=== PATIENT | female | born 1940 | race Caucasian/White ===

== ENCOUNTER 2024-01-14 19:32 | Inpatient (IN) | payer MEDICARE, OTHER, SELFPAY ==
[2024-01-14] VITALS (7 sets, daily range): BP systolic 105–153; BP diastolic 56–73; PULSE 72–73
[2024-01-14 16:12] LABS: % Basophils 0.6 % (0-2); % Eosinophils 1.9 % (0-6); % Immature Granulocytes 0.4 % (0-0.5); % Lymphocytes 9.9 % (20.5-51.1); % Monocytes 7.3 % (1.7-9.3); % Neutrophils 79.9 % (42.2-75.2); Absolute Basophils 0.1 10^3/uL (0-0.2); Absolute Eosinophils 0.2 10^3/uL (0-0.7); Absolute Lymphocytes 0.8 10^3/uL (1.2-3.4); Absolute Monocytes 0.6 10^3/uL (0.1-0.6); Absolute Neutrophils 6.3 10^3/uL (1.4-6.5); Hematocrit 37.6 % (37.0-47.0); Hemoglobin 12.2 g/dL (12.0-16.0); Mean Corp Hgb Conc. 32.4 g/dL (33.0-37.0); Mean Corpuscular Hgb 29.9 pg (27.0-31.0); Mean Corpuscular Volume 92.2 fL (81.0-99.0); Mean Platelet Volume 9.5 fL (7.4-10.4); Nucleated Red Blood Cells % 0 %; Platelet Count 222 10^3/uL (130-400); Red Blood Cell Count 4.08 10^6/uL (4.20-5.40); Red Cell Dist. Width 14.1 % (11.5-14.5); White Blood Cell Count 7.9 10^3/uL (4.8-10.8)
[2024-01-14 16:33] LABS: ALT (SGPT) 12 U/L (0-35); AST (SGOT) 23 U/L (14-36); Albumin 3.8 g/dl (3.5-5.0); Alkaline Phosphatase 110 U/L (38-126); Blood Urea Nitrogen 19 mg/dl (7-17); Calcium 9.2 mg/dl (8.4-10.2); Carbon Dioxide 33 mmol/L (22-30); Chloride 100 mmol/L (98-107); Glucose 135 mg/dl (70-99); Potassium 4.1 mmol/L (3.5-5.1); Sodium 138 mmol/L (135-145); Total Bilirubin 1.2 mg/dl (0.2-1.3); eGFR > 60.00
--- NOTE | 2024-01-14 17:34 | ED.GENMED ---
History of Present Illness
General
Chief Complaint: Rectal Bleeding
Source: patient and family
Time Seen by Provider: 01/14/24 17:14
History of Present Illness
History of Present Illness:
83-year-old female with past medical history of previous MA, CHF, atrial fibrillation, hypertension, previous PE and previous CVA presenting to the emergency department for evaluation of bright red blood per rectum over the last 24 hours with
symptoms for starting yesterday noting that she did not have any bowel movement but there was blood within the toilet and then today had a normal bowel movement but then proceeded to have blood afterwards. Patient states that this is the second
time in 2 months she has had this with the first episode thought to be related to internal hemorrhoids but patient states the bleeding this time is much more severe. She follows with Dr. Adi Joya and there were talks about potentially doing a
colonoscopy however due to patient's risk factors this was ultimately decided against. Patient does take Eliquis daily due to her history of atrial fibrillation. Currently denying any abdominal or rectal pain, fevers or infectious symptoms,
nausea, vomiting or any other concerns.
Past History
Past History
ED Past Medical History: Arrthythmia, CAD, CHF, CVA, HTN and MA
ED Past Surgical History: Cardiac and Gynecological
Social History
Tobacco: Non-smoker
Alcohol: None
Drug: None
Personal:
Living: with family
Review of Systems
Review of Systems
All Other Systems: ROS reviewed and negative except as documented in HPI and ROS
Phy Exam
Physical Exam
Physical Exam:
GENERAL: Alert , in no apparent distress, significantly overweight
EYE: clear conjunctiva b/l
HEAD: NCAT
ENT: o/p clr, mmm.
CARDIAC: Regular rate and rhythm .
LUNGS: Clear breath sounds bilaterally, no acute respiratory distress, no wheezes/rales/rhonchi
ABDOMEN: Soft, without focal tenderness, no r/g, no cvat
Rectal exam: Chaperoned by ED RN Eugenie -light brown stool, faintly heme positive, large nonthrombosed external hemorrhoids
NEUROLOGICAL: Alert and oriented
SKIN: Warm and dry, skin intact.
MUSCULOSKELETAL: well perfused.
PSYCH: Normal and appropriate interaction.
Scores
Heart Failure Risk
Heart Failure Risk Score: Not Applicable
Heart Score for Chest Pain Patients
STEMI patient?: Not applicable
Withdrawal Assessment of Alcohol
Withdrawal Assessment Completed?: Not applicable
Course
Orders/Labs/Results
Orders:
Orders
01/14/24 15:57
Type+Screen Urgent
Complete Blood Count/With Diff Urgent
Comprehensive Metabolic Panel Urgent
01/14/24 17:58
Admit/Transfer Patient As Directed
Co-Sign Provider:
Level of Care: Inpatient admission
Assign to:: Telemetry
Physician / Group: joan
Diagnosis: rectl bleed
Reason for Telemetry: Arrhythmia
Date to Stop Telemetry: 01/17/24
Time to Stop Telemetry: 11:00
Reason for Hospitalization: rectal bleed
Expected length of stay greater than two midnights?: Yes
ELOS- Estimated Length of Stay in days: 3
I certify the patient meets the requirements for IP care: Yes
PRN Pain Medication Management As Directed
May give lesser potent ordered pain med per pt: Yes
preference::
Protocol:: Medication orders for pain may be administered in a
manner that supports deferring to patient preference
when the pt is:
- Requesting an ordered lesser potent pain medication.
Least to most potent pain medications are defined
as: acetaminophen < NSAID < tramadol < opioids
(morphine, oxycodone, hydromorphone).
- Requesting a lesser dose of the same medication IF
ORDERED.
- Requesting a less intrusive route of administration
if both routes are prescribed by the provider (PO <
IV).
01/14/24 17:59
Code Status As Directed
Resuscitation Status: Full Code
01/14/24 18:50
EKG [Electrocardiogram (*1)] Stat
Reason for Study: Atrial Fibrillation
01/17/24 11:00
DC Protocol for Telemetry ONCE
Abnormal Lab Results
01/14/24
15:57
RBC 4.08 L 10^6/uL
(4.20-5.40)
MCHC 32.4 L g/dL
(33.0-37.0)
Absolute Lymphs (auto) 0.8 L 10^3/uL
(1.2-3.4)
Neutrophils % 79.9 H %
(42.2-75.2)
Lymphocytes % 9.9 L %
(20.5-51.1)
Carbon Dioxide 33 H mmol/L
(22-30)
BUN 19 H mg/dl
(7-17)
Creatinine 0.5 L mg/dL
(0.6-1.0)
Glucose 135 H mg/dl
(70-99)
01/14/24 15:57
01/14/24 15:57
Vital Signs
Initial and Last Documented VS:
Initial Vital Signs
Temp Pulse Resp BP Pulse Ox
97.8 F 70 18 116/71 97
01/14/24 15:45 01/14/24 15:45 01/14/24 15:45 01/14/24 15:45 01/14/24 15:45
Last Documented Vital Signs
Temp Pulse Resp BP Pulse Ox
97.8 F 70 17 105/73 96
01/14/24 15:45 01/14/24 18:15 01/14/24 18:15 01/14/24 17:05 01/14/24 18:15
MDM/Problems Addressed
Differential Diagnosis Includes:
Hemorrhoidal bleeding, diverticular bleed, less concern for upper GI bleed, anemia
MDM/Problems Addressed:
83-year-old female presenting to the emergency department for evaluation after she has had multiple episodes of bright red blood per rectum during bowel movements. Similar episode 2 months ago which was thought to be related to internal hemorrhoids
however was unable to get any colonoscopy or imaging done due to risk factors. Presently hemodynamically stable. Labs have been initiated in triage and patient has a hemoglobin of 12.2. Given patient's age, past medical history combined with
being on Eliquis I do think it would be in patient's best interest to be admitted to at least trend her hemoglobin. Colorectal and GI can be consulted as needed. Will notify hospitalist team.
Chronic conditions affecting care: Arrhythmia
*Pulse Oximetry
Patient hypoxic: no
*Circular Tank Cooper Interpretation
Rate: normal
Rhythm: sinus
*Critical Care Note
Total Time (30-74mins, 75-104mins- exclusive of procedures): Not Applicable
Data Reviewed
Review of Other/Old Records Reveals: Labs and Records
Source: patient and records
Patient Management
Discussion with other providers: Hospitalist and Putty Maker
Escalation/DeEscalation of care consider admission/obs:
Hospitalist team is aware and accepts for continued evaluation and treatment. I also notified colorectal surgery who is in agreement with this plan.
ED Attending Note
-
Portions of this chart may have been created with voice recognition software.� Occasional wrong word or��sound alike� substitutions may have occurred due to the inherent limitations of voice recognition software.
Discharge Plan
Departure
Patient Disposition: Admit
Date of Disposition: 01/14/24
Time of Disposition: 17:34
Presentation/result/management discussed w/ accepting MD/DO: Hospitalist
Discharge Problem:
GI bleeding
Prescriptions:
No Action
furosemide 40 MG tablet
40 mg PO .3X WEEKLY PRN (Reason: swelling)
spironolactone 25 MG tablet
25 mg PO BID
lovastatin 20 MG tablet
20 mg PO MOWEFR
famotidine 20 MG tablet
20 mg PO BID
PreserVision AREDS-2 1 EACH capsule
1 ea PO BID
duloxetine 60 mg capsule,delayed release(DR/EC)
60 mg PO DAILY
cholecalciferol (vitamin D3) 25 mcg (1,000 unit) Tablet
25 mcg PO BID
apixaban 2.5 mg Tablet
2.5 mg PO BID
hydrocodone-acetaminophen 5-325 mg tablet
1 tab PO BIDPRN PRN (Reason: moderate pain)
Patient Comments:
01/14/2024: last filled 12/26/22, 30 tabs [facility] days [facility]
nitroglycerin [Nitrostat] 0.4 mg Tablet, Sublingual
0.4 mg sublingual [id number] PRN (Reason: chest pain)
Referrals:
UNKNOWN - PT DOES,NOT KNOW [Family Provider] -
Interventions
Interventions:
*Risk Screen - Suicide Last Done: 01/14/24 15:45
*General Assessment Last Done: 01/14/24 15:45
*Neglect/Abuse Screening Last Done: 01/14/24 15:45
OL-Btsqxg-Dgmyzncoit Assessment Last Done: 01/14/24 17:11
ED- Cardiac Assessment Last Done: 01/14/24 17:11
ED- Pulmonary Assessment Last Done: 01/14/24 17:11
Discharge Date and Time
Print Language: ESTONIAN
--- NOTE | 2024-01-14 17:37 | HPS.HSE ---
Addendum entered and electronically signed by Marilu Mcclendon MD 01/14/24 21:41:
I saw and examined the patient.
The CLOTHES SHAKER or PA's note was reviewed and I agree with the note.
Comment:
83F Morbid Obesity HFpEF sleep apnea, PAF, HTN, hemorrhoids p/w rectal bleeding 2-3 days duration. Denied abdominal pain, nausea, vomiting, diarrhea, headache, dizziness, syncopal episode, chest pain, short of breath, dysuria, or hematuria.
Wheelchair bound at baseline.
Physical Exam
General: No pallor, cyanosis, or jaundice. Morbid Obesity
HEENT: Throat clear. PERRLA Normocephalic atraumatic
NECK: Supple. No JVD Carotid Bruits
RESPIRATORY: Lungs clear to auscultation. No crackles wheezes stridor
CVS: S1, S2 normal. RRR. No murmur, rub or gallop.
ABDOMEN: Soft, non-tender. No distension. BS+/normal.
EXTREMITIES: +1 pitting edema b/l lower ext's calf tenderness
CONFERENCE SERVICES DIRECTOR: AOx3. No focal deficits.
#Gi bleed suspected hemorrhoidal
#hxt of PE
#paroxysmal atrial fib
# Depression/anxiety
# History of GERD
# History of diastolic CHF
# Hyperlipidemia
#Chronic LE
#sleep apnea
Monitor H&H, transfusion goal >8 given concern active bleeding
Anusol HS
Type and Screen
hold Eliquis for now
GI eval
Venous duplex eval Lower Ext Edema Calf tenderness, wheelchair bound at baseline though reports compliance Eliquis.
PT/OT eval
Original Note:
Family Physician
-
Family Physician: NOT KNOW UNKNOWN - PT DOES
Chief Complaint
-
Rectal bleeding
History of Present Illness
83-year-old with past medical history for diastolic congestive heart failure, sleep apnea, PAF, hypertension, hemorrhoids presented to us with rectal bleeding since Thursday. Patient stated bright blood, as well as she noticed clots on Thursday and
Thursday night. Patient denied any abdominal pain, nausea, vomiting. Denied any diarrhea. Denied headache, dizziness, syncopal episode. Patient denied chest pain or short of breath. Patient denied dysuria hematuria
Hemoglobin stable in ER. Admitted for further management
Medical History
Past Medical History
Past Medical History: Reports Other
Additional Past Medical History:
CHF
Sleep apnea
PAF
HTN
uterine ca
Past Surgical History: Reports Other
Additional Past Surgical History:
pacemaker
hip replacement
hernia surgery
cardiac ablation
carpel tunnel surgery
Social History
Tobacco: Non-smoker
Alcohol: Occasional
Drug: None
Personal: Single
Living: With Family
Family History
Family History: Not pertinent
Allergies / Home Medications
Allergies reflects when Allergies were last updated in [facility].
Home Medications with original date entered in [facility]
Allergy/Medication List:
Allergies
Allergy/AdvReac Type Severity Reaction Status Date / Time
adenosine Allergy Shortness Verified 03/26/22 10:01
of Breath
aspirin Allergy Shortness Verified 03/26/22 10:01
of Breath
atorvastatin calcium Allergy Unknown Verified 03/26/22 10:01
[From Lipitor]
dabigatran etexilate mesylate Allergy Unknown Verified 03/26/22 10:01
[From Pradaxa]
oxycodone [Oxycodone] Allergy Nausea / Verified 03/26/22 10:01
Vomiting
rosuvastatin calcium Allergy Unknown Verified 03/26/22 10:01
[From Crestor]
thiopental sodium Allergy Shortness Verified 03/26/22 10:01
[From Pentothal] of Breath
Home Medications
furosemide 40 mg tablet 40 mg PO .3X WEEKLY PRN swelling 02/02/14
lovastatin 20 mg tablet 20 mg PO MOWEFR 02/02/14
spironolactone 25 mg tablet 25 mg PO BID 02/02/14
famotidine 20 mg tablet 20 mg PO BID 03/02/21
vit C 250 mg-vit E 90 mg-zinc 40 mg-copper 1 [id number] capsule (PreserVision AREDS-2) 1 ea PO BID 03/02/21
apixaban 2.5 mg tablet 2.5 mg PO BID 01/14/24
cholecalciferol (vitamin D3) 25 mcg (1,000 unit) tablet 25 mcg PO BID 01/14/24
duloxetine 60 mg capsule,delayed release 60 mg PO DAILY 01/14/24
hydrocodone 5 mg-acetaminophen 325 mg tablet 1 tab PO BIDPRN PRN moderate pain 01/14/24
nitroglycerin 0.4 mg sublingual tablet (Nitrostat) 0.4 mg sublingual [id number] PRN chest pain 01/14/24
Review of Systems
-
Constitutional: Reports No Symptoms
EENT: Reports No Symptoms
Respiratory: Reports No Symptoms
Cardiac: Reports No Symptoms
Abdomen/GI: Reports Bloody Stools
: Reports No Symptoms
Musculoskeletal: Reports No Symptoms
Skin: Reports No Symptoms
Neurological: Reports No Symptoms
Endocrine: Reports No Symptoms
Hematologic/Lymphatic: Reports No Symptoms
Psych: Reports No Symptoms
Physical Exam
Vital Signs
Vital Signs
Temp Pulse Resp BP Pulse Ox
97.8 F 78 15 105/73 97
01/14/24 15:45 01/14/24 17:30 01/14/24 17:30 01/14/24 17:05 01/14/24 17:30
Physical Exam
General: Well Developed, Well Nourished and No Apparent Distress
HEENT: NormoCephalic, Moist mucous membranes and Atraumatic
Respiratory: Clear
Cardiac: S1/S2 and Regular Rhythm; No Murmur or Rub
GI: Soft, Non Tender, Non Distended and Normal Bowel Sounds; No Organomegaly
Rectal: Deferred by Provider
Musculoskeletal: No Clubbing, No Cyanosis and Other (Lower extremities edema chronic)
Skin: No Rash
Neuro: AO x 3 and Nonfocal/grossly intact
Psych: Calm
Laboratory Results
-
01/14/24 15:57
01/14/24 15:57
Laboratory Results
Total Bilirubin 1.2 mg/dl (0.2-1.3) 01/14/24 15:57
AST 23 U/L (14-36) 01/14/24 15:57
ALT 12 U/L (0-35) 01/14/24 15:57
Alkaline Phosphatase 110 U/L (38-126) 01/14/24 15:57
Data Reviewed
-
Lab Data: Labs Reviewed by me
Impression/Plan
-
#Gi bleed likely hemorrhoidal
-hgb 12.2
-Trend hemoglobin
-Clear liquid diet
-IV PPI
-Transfuse if hemoglobin less than 8
-GI consulted
#hxt of PE
-Hold Eliquis
#paroxysmal atrial fib
-Obtain EKG
# Depression/anxiety
-Duloxetine continued
# History of GERD
-PPI continued
# History of diastolic CHF
-On Lasix as needed
-Strict JALEEL
-Daily weight
-Spironolactone continued
# Hyperlipidemia
-Statin continued
#Chronic LE
-will obtain duplex of LE
#sleep apnea
-Cpap ordered
# DVT prophylaxis SCDs
# CODE STATUS
-Full code
[2024-01-14 19:11] LABS: Hematocrit 36.1 % (37.0-47.0); Hemoglobin 11.8 g/dL (12.0-16.0)
[2024-01-14 19:23] LABS: Fibrinogen 592 MG/DL (199-459)
--- NOTE | 2024-01-14 20:40 | PTCARENOTE ---
Pt arrived to unit from ED and was a pullover assist from stretcher into bed. AAOx3, VS stable on admission, no complaints of pain at this time. Pt oriented to room, call valencia within reach. No diet was ordered for pt; House MOODY Huerta
notified, order for clear liquid diet entered by MOODY Huerta.
--- NOTE | 2024-01-14 20:40 | RESPNOTE ---
pt declines usage of cpap tonight due to coughing and increased mucus production
[2024-01-14] MEDS: ALDACTONE 25 MG PO (20:55)
[2024-01-14] MEDS: PROTONIX IV 40 MG IV (20:55)
[2024-01-14] MEDS: NSS (PRESERVATIVE FREE) 10 ML IV (20:55)
[2024-01-14] MEDS: DESENEX/MITRAZOL/ZEASORB 1 APPLIC TOPICAL (22:37)
[2024-01-14] MEDS: ANUSOL HC 25 MG RECTAL (22:37)
[2024-01-14] MEDS: NORCO 5/325 1 TABLET PO (22:56)
--- NOTE | 2024-01-14 23:30 | PTCARENOTE ---
Pt reports a productive cough with clear mucus and requesting a cough drop. House MANAGER NON PROFIT Emani Huerta notified, order placed for 1x menthol lozenge.
[2024-01-14] MEDS: ANESTHETIC LOZENGE 1 LOZENGE PO (23:44)
[2024-01-15] VITALS (7 sets, daily range): BP systolic 137–165; BP diastolic 58–87; PULSE 75–77; O2SAT 95; BMI 48.8
[2024-01-15 02:01] LABS: Hematocrit 34.7 % (37.0-47.0); Hemoglobin 11.3 g/dL (12.0-16.0)
--- NOTE | 2024-01-15 07:14 | W.PN.HOSP.TC ---
Today's Communication/Plan
-
monitor H&H
PT/OT
resume diet
cont hold Eliquis at this time
Assessment / Plan
Assessment / Plan
Physical Exam
General: No pallor, cyanosis, or jaundice. Morbid Obesity
HEENT: Throat clear. PERRLA Normocephalic atraumatic
NECK: Supple. No JVD Carotid Bruits
RESPIRATORY: Lungs clear to auscultation. No crackles wheezes stridor
CVS: S1, S2 normal. RRR. No murmur, rub or gallop.
ABDOMEN: Soft, non-tender. No distension. BS+/normal.
EXTREMITIES: +1 pitting edema b/l lower ext's calf tenderness
[employer] AND SILVERWARE SALESPERSON: AOx3. No focal deficits.
83F Morbid Obesity HFpEF sleep apnea, PAF, HTN, hemorrhoids p/w rectal bleeding 2-3 days duration. Denied abdominal pain, nausea, vomiting, diarrhea, headache, dizziness, syncopal episode, chest pain, short of breath, dysuria, or hematuria.
Wheelchair bound at baseline.
#Gi bleed likely hemorrhoidal
-hgb trended down remains stable consistently >11
-IV PPI
-Transfuse if hemoglobin less than 8
-GI CRS consults appreciated ok to resume regular diet cont hold Eliquis at this time, eventual restart in 2 days if no further bleeding
#hxt of PE
-Hold Eliquis
#paroxysmal atrial fib
-EKG appreciated paced
# Depression/anxiety
-Duloxetine continued
# History of GERD
-PPI continued
# History of diastolic CHF
-On Lasix as needed
-Strict JALEEL
-Daily weight
-Spironolactone continued
# Hyperlipidemia
-Statin continued
#Chronic LE
-venous duplex limited study, no DVT noted
#sleep apnea
-Cpap ordered
# DVT prophylaxis SCDs
# CODE STATUS
-Full code
I spent a total of 50 minutes with the patient or on the floor. More than 50% of this time involved counseling and coordination of care.
Anticipated Discharge: 24 - 48 hours
Subjective/Interval History
-
Date of Service: January 15, 2024
No acute distress appears comfortable. Bloody bowel movement appears resolved at this time.
Objective Data
-
Labs:
Laboratory Results
01/15/24 01/15/24 01/15/24
01:41 06:00 08:00
WBC Pending
Hgb 11.3 L Pending Pending
Hct 34.7 L Pending Pending
Plt Count Pending
Sodium Pending
Potassium Pending
Chloride Pending
Carbon Dioxide Pending
BUN Pending
Creatinine Pending
Glucose Pending
Calcium Pending
Vital Signs:
Vital Signs
Temp Pulse Resp BP Pulse Ox
97.9 F 72 16 144/65 92
01/15/24 03:45 01/15/24 03:45 01/15/24 03:45 01/15/24 03:45 01/15/24 03:45
I&O
01/14/24 01/15/24 01/16/24
06:59 06:59 06:59
Intake Total 480 / 480
Output Total 400 / 400
Balance 80 / 80
--- NOTE | 2024-01-15 07:58 | CON.CRS ---
Consultation
-
Performing Provider: Adi Joya MD
Reason for Consultation: Bleeding per rectum
Medical History
-
History of Present Illness:
Patient is an 83-year-old female with HFpEF, paroxysmal A-fib (on Eliquis), HTN, DPN/Anx, HLD, BMI 48, uterine cancer who I saw in the office 4 to 5 months ago for thrombosed external hemorrhoid. This was treated nonoperatively with topicals. She
admitted to rare spotting of blood at that point, about 2 times per year. She sees Dr. Yousif with GI who said she is too high risk for colonoscopy at this point. She presents this admission for multiple episodes of bright red blood per rectum
starting 4 days ago after BMs. It was primarily on the toilet paper, but 3 days ago, it occurred multiple times and was dripping down her leg. She had more episodes yesterday morning so she went to the ED. She denies any other symptoms, such as
chest pain, shortness of breath, syncope or abdominal pain. Denies N/V. Since last night, she has no further bleeding, but also no further BMs. Her Eliquis was held and she was made n.p.o. overnight.
Past Medical History
Past Medical History: Other (As above)
Past Surgical History: Other (PPM, hip replacement, hernia surgery, cardiac ablation, carpal tunnel)
Allergies / Home Medications
Allergy/AdvReac Type Severity Reaction Status Date / Time
adenosine Allergy Shortness Verified 03/26/22 10:01
of Breath
aspirin Allergy Shortness Verified 03/26/22 10:01
of Breath
atorvastatin calcium Allergy Unknown Verified 03/26/22 10:01
[From Lipitor]
dabigatran etexilate mesylate Allergy Unknown Verified 03/26/22 10:01
[From Pradaxa]
oxycodone [Oxycodone] Allergy Nausea / Verified 03/26/22 10:01
Vomiting
rosuvastatin calcium Allergy Unknown Verified 03/26/22 10:01
[From Crestor]
thiopental sodium Allergy Shortness Verified 03/26/22 10:01
[From Pentothal] of Breath
�Medication �Instructions �Recorded �Confirmed �Type
furosemide 40 mg tablet 40 mg PO .3X WEEKLY PRN swelling 02/02/14 01/14/24 History
lovastatin 20 mg tablet 20 mg PO MOWEFR 02/02/14 01/14/24 History
spironolactone 25 mg tablet 25 mg PO BID 02/02/14 01/14/24 History
famotidine 20 mg tablet 20 mg PO BID 03/02/21 01/14/24 History
vit C 250 mg-vit E 90 mg-zinc 40 1 ea PO BID 03/02/21 01/14/24 History
mg-copper 1 [id number]
capsule (PreserVision AREDS-2)
apixaban 2.5 mg tablet 2.5 mg PO BID 01/14/24 01/14/24 History
cholecalciferol (vitamin D3) 25 25 mcg PO BID 01/14/24 01/14/24 History
mcg (1,000 unit) tablet
duloxetine 60 mg capsule,delayed 60 mg PO DAILY 01/14/24 01/14/24 History
release
hydrocodone 5 mg-acetaminophen 325 1 tab PO BIDPRN PRN moderate pain 01/14/24 01/14/24 History
mg tablet
nitroglycerin 0.4 mg sublingual 0.4 mg sublingual [id number] PRN 01/14/24 01/14/24 History
tablet (Nitrostat) chest pain
Review of Systems
-
A 10 point review of systems was completed, and was negative except as per HPI.
Physical Exam
Vital Signs
Temp 97.9 F 01/15/24 03:45
Pulse 72 01/15/24 03:45
Resp Rate 16 01/15/24 03:45
Blood pressure 144/65 01/15/24 03:45
SaO2 92 01/15/24 03:45
01/14/24 01/15/24 01/16/24
06:59 06:59 06:59
Actual Weight 132.903 kg
Body Mass Index (BMI) 48.8
Lab Results / Allergies
01/15/24 08:00
WBC 7.9 10^3/uL (4.8-10.8) 01/14/24 15:57
Hgb Cancelled 01/15/24 08:00
Hct Cancelled 01/15/24 08:00
Plt Count 222 10^3/uL (130-400) 01/14/24 15:57
Abs Immat Gran (auto) 0.0 10^3/uL (0-0.05) 01/14/24 15:57
Neutrophils % 79.9 % (42.2-75.2) H 01/14/24 15:57
Allergy/AdvReac Type Severity Reaction Status Date / Time
adenosine Allergy Shortness Verified 03/26/22 10:01
of Breath
aspirin Allergy Shortness Verified 03/26/22 10:01
of Breath
atorvastatin calcium Allergy Unknown Verified 03/26/22 10:01
[From Lipitor]
dabigatran etexilate mesylate Allergy Unknown Verified 03/26/22 10:01
[From Pradaxa]
oxycodone [Oxycodone] Allergy Nausea / Verified 03/26/22 10:01
Vomiting
rosuvastatin calcium Allergy Unknown Verified 03/26/22 10:01
[From Crestor]
thiopental sodium Allergy Shortness Verified 03/26/22 10:01
[From Pentothal] of Breath
Physical Exam
General: Well Developed, No Apparent Distress and Comfortable
HEENT: Normocephalic and Atraumatic
Respiratory: Non Labored Respirations
GI: Soft, Non Tender and Non Distended
Rectal: Hemorrhoids (Small to moderate external hemorrhoids, nonthrombosed, mildly tender; on JANI, palpable small internal hemorrhoids, no gross blood, no masses)
Skin: Warm and Dry
Neuro: AO x 3
Assessment / Plan
-
83-year-old female with HFpEF, paroxysmal A-fib (on Eliquis), HTN, DPN/Anx, HLD, BMI 48, uterine cancer with prior history of thrombosed external hemorrhoids and occasional hemorrhoidal bleeding who presents with significant worsening in bright red
blood per rectum for 3 days, presented to the ED, Hb was 12.3, repeat was 11.8. She was admitted and her Eliquis was held. She has been seen by Dr. Yousif with GI as outpatient, who stated she was too high risk for a repeat colonoscopy at that time
AFVSS
Hb 11.3 from 11.8
� Bleeding per rectum; most consistent with hemorrhoidal bleeding
�Bleeding seems to have resolved with conservative measures
�If bleeding continues, would consult GI to discuss risk/benefits of repeat colonoscopy to confirm no proximal lesion
�Continue conservative measures: Sitz bath's, Anusol cream twice daily, hydrocortisone suppositories nightly, high-fiber
�Discussed risks of surgical intervention, which are significantly elevated given her BMI and comorbidities; however, if continues to bleed, may need UA for possible hemorrhoid ligation
� Okay for regular diet
� Continue to hold Eliquis; once no further bleeding and hemoglobin stable for 24 hours, okay to restart Eliquis
� Encourage OOB and IS
� Appreciate hospitalist
Dispo�if no further bleeding this morning, okay for discharge this afternoon from CRS standpoint and restart Eliquis on Thursday
[2024-01-15] MEDS: ALDACTONE 25 MG PO ×2 (08:34→20:10)
[2024-01-15] MEDS: NORCO 5/325 1 TABLET PO ×2 (08:35→21:34)
[2024-01-15] MEDS: CYMBALTA DELAYED RELEASE 60 MG PO (08:36)
[2024-01-15] MEDS: DESENEX/MITRAZOL/ZEASORB 1 APPLIC TOPICAL ×2 (08:36→20:10)
[2024-01-15] MEDS: PROTONIX IV 40 MG IV ×2 (08:37→20:09)
[2024-01-15] MEDS: NSS (PRESERVATIVE FREE) 10 ML IV ×2 (08:37→20:09)
[2024-01-15 09:28] LABS: Hematocrit 35.2 % (37.0-47.0); Hemoglobin 11.7 g/dL (12.0-16.0); Mean Corp Hgb Conc. 33.2 g/dL (33.0-37.0); Mean Corpuscular Hgb 31.1 pg (27.0-31.0); Mean Corpuscular Volume 93.6 fL (81.0-99.0); Mean Platelet Volume 9.3 fL (7.4-10.4); Platelet Count 193 10^3/uL (130-400); Red Blood Cell Count 3.76 10^6/uL (4.20-5.40); Red Cell Dist. Width 14.1 % (11.5-14.5); White Blood Cell Count 7.3 10^3/uL (4.8-10.8)
[2024-01-15 10:04] LABS: Blood Urea Nitrogen 16 mg/dl (7-17); Carbon Dioxide 31 mmol/L (22-30); Chloride 101 mmol/L (98-107); Estimated Creatinine Clearance 95 ml/min; Glucose 104 mg/dl (70-99); Potassium 4.5 mmol/L (3.5-5.1); Sodium 135 mmol/L (135-145); eGFR > 60.00
--- NOTE | 2024-01-15 11:02 | CON.GI ---
Medical History
Chief Complaint / HPI
Chief Complaint: Bright red rectal bleeding
History of Present Illness:
Patient is an 83yo F with PMH of HFpEF, paroxysmal A-fib (on Eliquis), HTN, HLD, uterine cancer, morbid obesity, external and internal hemorrhoids, depression/ anxiety who presented with bright red blood per rectum staring on Thursday. She mentions
she initially noticed spots of blood on the toilet paper but on Thursday it progressed and she was dripping bright red blood down her leg after defecation. These episodes of BRBPR reoccurred through . She does not mention any pain with
defecation. Her last BM and last bleeding was yesterday evening. She is known to Dr. Adi Joya and was treated nonoperatively with topicals for thrombosed external hemorrhoid about 5 months ago. She also sees Dr. Yousif (printing sales representative) at
[facility].
Patient does not report any N/V,abdominal pain, melena, hematemesis. She denies fever, CP, SOB, dizziness/lightheadedness.
Past Medical History
Past Medical History: Arrhythmias, HTN, Hypercholesterolemia, Psychiatric and Other (as mentioned in HPI)
Past Surgical History: Other (PPM, hip replacement, hernia surgery, cardiac ablation, carpal tunnel syndrome)
Social History
Tobacco: Non-Smoker
Alcohol: Occasional
Drug: None
Living: With Family
Family History
Family History: Reviewed & Not Pertinent
Allergies / Home Medications
Allergy/AdvReac Type Severity Reaction Status Date / Time
adenosine Allergy Shortness Verified 03/26/22 10:01
of Breath
aspirin Allergy Shortness Verified 03/26/22 10:01
of Breath
atorvastatin calcium Allergy Unknown Verified 03/26/22 10:01
[From Lipitor]
dabigatran etexilate mesylate Allergy Unknown Verified 03/26/22 10:01
[From Pradaxa]
oxycodone [Oxycodone] Allergy Nausea / Verified 10/19/22 10:01
Vomiting
rosuvastatin calcium Allergy Unknown Verified 03/26/22 10:01
[From Crestor]
thiopental sodium Allergy Shortness Verified 03/26/22 10:01
[From Pentothal] of Breath
�Medication �Instructions �Recorded
furosemide 40 mg tablet 40 mg PO .3X WEEKLY PRN swelling 02/02/14
lovastatin 20 mg tablet 20 mg PO MOWEFR 02/02/14
spironolactone 25 mg tablet 25 mg PO BID 02/02/14
famotidine 20 mg tablet 20 mg PO BID 03/02/21
vit C 250 mg-vit E 90 mg-zinc 40 1 ea PO BID 03/02/21
mg-copper 1 [id number]
capsule (PreserVision AREDS-2)
apixaban 2.5 mg tablet 2.5 mg PO BID 01/14/24
cholecalciferol (vitamin D3) 25 25 mcg PO BID 01/14/24
mcg (1,000 unit) tablet
duloxetine 60 mg capsule,delayed 60 mg PO DAILY 01/14/24
release
hydrocodone 5 mg-acetaminophen 325 1 tab PO BIDPRN PRN moderate pain 01/14/24
mg tablet
nitroglycerin 0.4 mg sublingual 0.4 mg sublingual [id number] PRN 01/14/24
tablet (Nitrostat) chest pain
Review of Systems
-
History Source: Patient
All other systems: A 12 pt ROS was Negative except as stated above in HPI
Abdomen/GI: Denies Abdominal Pain, Nausea or Vomiting
Neurological: Denies Dizzy or Headache
Vital Signs
Temp Pulse Resp BP Pulse Ox
98.1 F 91 16 165/87 96
01/15/24 07:00 01/15/24 08:34 01/15/24 07:00 01/15/24 08:34 01/15/24 07:00
Physical Exam
Exam
General: Well Developed
HEENT: Normocephalic and Anicteric
Respiratory: Clear
Cardiac: S1/S2 and Regular Rhythm
GI: Soft, Non Tender, Non Distended and Normal Bowel Sounds
Neuro: Awake, Alert, Oriented and AO x 3
Results
WBC 7.3 10^3/uL (4.8-10.8) 01/15/24 09:12
Hgb 11.7 g/dL (12.0-16.0) L 01/15/24 09:12
Hct 35.2 % (37.0-47.0) L 01/15/24 09:12
MCV 93.6 fL (81.0-99.0) 01/15/24 09:12
Plt Count 193 10^3/uL (130-400) 01/15/24 09:12
Absolute Neuts (auto) 6.3 10^3/uL (1.4-6.5) 01/14/24 15:57
Sodium 135 mmol/L (135-145) 01/15/24 09:12
Potassium 4.5 mmol/L (3.5-5.1) 01/15/24 09:12
Chloride 101 mmol/L (98-107) 01/15/24 09:12
Carbon Dioxide 31 mmol/L (22-30) H 01/15/24 09:12
BUN 16 mg/dl (7-17) 01/15/24 09:12
Creatinine 0.5 mg/dL (0.6-1.0) L 01/15/24 09:12
Calcium 9.0 mg/dl (8.4-10.2) 01/15/24 09:12
Total Bilirubin 1.2 mg/dl (0.2-1.3) 01/14/24 15:57
AST 23 U/L (14-36) 01/14/24 15:57
ALT 12 U/L (0-35) 01/14/24 15:57
Alkaline Phosphatase 110 U/L (38-126) 01/14/24 15:57
Diagnostic Image Results:
Prior GI Procedures:
EGD:
Colonoscopy:
Assessment / Plan
-
Patient is an 83yo F with PMH of HFpEF, paroxysmal A-fib (on Eliquis), HTN, HLD, uterine cancer, morbid obesity, external and internal hemorrhoids, depression/ anxiety who presented with BRBPR since 3 days ago. Patient is hemodynamically stable. Did
not become hypotensive/tachycardic overnight. Hgb currently stands at 11.7 (previously 11.3).
Eliquis was held and she was made n.p.o. overnight.
#Recommendations:
- Most likely hemorrhoidal bleeding
- Patient is currently stable w/o any recurrence of active bleeding
- colonoscopy is not recommended at this time and will follow clinically
- If patient continues to be stable w/o any significant LGIB, she can be discharged.
-
-
Thank you for consultation and allowing me to participate in the patient's care. Please call the wood barrel reconditioner GI physician during the after hours with any questions or concerns.
--- NOTE | 2024-01-15 11:45 | CM ---
Patient seen bedside.
IA completed.
Patient lives alone in 1 2 story home with ramp to enter.
Bed and bath on first floor.
Independent prior to admission.
Does not drive anymore.
Has a WC and Electric WC at home.
Had VN in the past, maybe GV, does not think she needs VN on d/c.
Patients daughter will transport home.
PCP; Dr Quach
Pharmacy: [facility]
Plan: home no needs anticipated.
[2024-01-15] MEDS: LIPITOR 10 MG PO (17:31)
[2024-01-15] MEDS: ANUSOL HC 25 MG RECTAL (21:34)
[2024-01-16] VITALS (7 sets, daily range): BP systolic 115–135; BP diastolic 44–78; BMI 49.1
--- NOTE | 2024-01-16 01:02 | PTCARENOTE ---
Pt reports a productive cough with clear sputum ongoing for the past 3 days. House OPERATING SYSTEM PROGRAMMER Radha Proctor notified, order placed for PRN robitussin 10mL q4h. Pt is also refusing to wear her SCDs tonight - MOODY Proctor notified, no new orders at this time.
[2024-01-16] MEDS: NORCO 5/325 1 TABLET PO ×2 (06:20→19:38)
[2024-01-16] MEDS: ROBITUSSIN DM 10 ML PO ×2 (06:20→19:41)
--- NOTE | 2024-01-16 07:11 | W.PN.HOSP.TC ---
Today's Communication/Plan
-
Home Eliquis to resume this evening
monitor H&H
start Lasix IV diuresis Acute on Chronic HFpEF
cough medication prn, scheduled mucinex
Duoneb RQID
PT/OT
Assessment / Plan
Assessment / Plan
Physical Exam
General: No pallor, cyanosis, or jaundice. Morbid Obesity
HEENT: Throat clear. PERRLA Normocephalic atraumatic
NECK: Supple. No JVD Carotid Bruits
RESPIRATORY: wheezing crackles
CVS: S1, S2 normal. RRR. No murmur, rub or gallop.
ABDOMEN: Soft, non-tender. No distension. BS+/normal.
EXTREMITIES: +1 pitting edema b/l lower ext's calf tenderness
SLEEVE TURNER: AOx3. No focal deficits.
83F Morbid Obesity HFpEF sleep apnea, PAF, HTN, hemorrhoids p/w rectal bleeding 2-3 days duration. Denied abdominal pain, nausea, vomiting, diarrhea, headache, dizziness, syncopal episode, chest pain, short of breath, dysuria, or hematuria.
Wheelchair bound at baseline.
#Gi bleed likely hemorrhoidal
-hgb trended down remains stable consistently >11
-IV PPI
-Transfuse if hemoglobin less than 8
-GI CRS consults appreciated ok to resume regular diet
-Eliquis to resume tonight, no new bloody bowel movements 2 days.
#hxt of PE
-home Eliquis resumed as above
#paroxysmal atrial fib s/p cardioversion
-EKG appreciated paced
-home Eliquis resumed as above
# Depression/anxiety
-Duloxetine continued
# History of GERD
-PPI continued
# Acute on Chronic HFpEF
#Coughing
-CXR appreciated Boderline CHF possible chronic interstitial lung dz
-takes 40 mg Lasix 3x/week at home
-started Lasix IV 20 mg BID, cont
-BNP 1420 but patient also morbidly obese causes falsely lower values, BNP is also significantly elevated compared to patient's prior value 537
-I/O
-Daily weight
-Spironolactone continued
# Hyperlipidemia
-Statin continued
#Chronic LE
-venous duplex limited study, no DVT noted
#sleep apnea
cont Cpap
# DVT prophylaxis SCDs
PT/OT appreciated SNF rehab, patient however prefers home, wheelchair bound at baseline.
# CODE STATUS
-Full code
I spent a total of 50 minutes with the patient or on the floor. More than 50% of this time involved counseling and coordination of care.
Anticipated Discharge: 24 - 48 hours
Subjective/Interval History
-
Date of Service: January 16, 2024
Productive cough clear sputum past 3 days, no further episodes of bloody bowel movements but hasn't had a bowel movement yet. Patient also endorses weight gain.
Objective Data
-
Labs:
Laboratory Results
01/16/24
06:00
WBC Pending
Hgb Pending
Hct Pending
Plt Count Pending
Sodium Pending
Potassium Pending
Chloride Pending
Carbon Dioxide Pending
BUN Pending
Creatinine Pending
Glucose Pending
Calcium Pending
Vital Signs:
Vital Signs
Temp Pulse Resp BP Pulse Ox
98.8 F 71 20 120/66 93
01/16/24 03:40 01/16/24 03:40 01/16/24 03:40 01/16/24 03:40 01/16/24 03:40
I&O
01/15/24 01/16/24 01/17/24
06:59 06:59 06:59
Intake Total 480 / 480 720 / 720
Output Total 400 / 400 775 / 775
Balance 80 / 80 -55 / -55
[2024-01-16] MEDS: NSS (PRESERVATIVE FREE) 10 ML IV ×2 (09:53→19:32)
[2024-01-16] MEDS: ALDACTONE 25 MG PO ×2 (09:53→19:32)
[2024-01-16] MEDS: PROTONIX IV 40 MG IV ×2 (09:53→19:32)
[2024-01-16] MEDS: CYMBALTA DELAYED RELEASE 60 MG PO (09:53)
[2024-01-16] MEDS: DESENEX/MITRAZOL/ZEASORB 1 APPLIC TOPICAL ×2 (09:54→19:34)
[2024-01-16 10:04] LABS: Hematocrit 36.9 % (37.0-47.0); Hemoglobin 11.8 g/dL (12.0-16.0); Mean Corpuscular Hgb 30.1 pg (27.0-31.0); Mean Corpuscular Volume 94.1 fL (81.0-99.0); Mean Platelet Volume 9.8 fL (7.4-10.4); Platelet Count 200 10^3/uL (130-400); Red Blood Cell Count 3.92 10^6/uL (4.20-5.40)
[2024-01-16 10:24] LABS: Blood Urea Nitrogen 19 mg/dl (7-17); Calcium 9.1 mg/dl (8.4-10.2); Carbon Dioxide 34 mmol/L (22-30); Chloride 97 mmol/L (98-107); Estimated Creatinine Clearance 95 ml/min; Glucose 135 mg/dl (70-99); Magnesium 1.9 mg/dl (1.6-2.3); Phosphorus 3.2 mg/dl (2.5-4.5); Potassium 4.4 mmol/L (3.5-5.1); Sodium 135 mmol/L (135-145); eGFR > 60.00
[2024-01-16] MEDS: DUONEB 3 ML INH ×3 (11:06→20:31)
[2024-01-16] MEDS: LASIX 20 MG IV ×2 (11:43→17:12)
[2024-01-16] MEDS: MUCINEX 600 MG PO (11:43)
[2024-01-16 11:49] LABS: NT-proBNP 1420 pg/ml
--- NOTE | 2024-01-16 12:45 | CM ---
Addendum entered by Marie Coy 01/16/24 12:50:
Patient reported she has PT in the home 2-3 times a week and declining SNF at this time
CM will follow up in the event she reconsiders
Original Note:
Met with patient; explained that PT recommending SNF; provided list of facility options to consider
Will follow up to obtain preferences
[2024-01-16] MEDS: LASIX IV (15:00)
[2024-01-16] MEDS: ELIQUIS 2.5 MG PO (19:32)
[2024-01-16] MEDS: MUCINEX PO ×2 (19:32→19:57)
--- NOTE | 2024-01-16 21:00 | PTCARENOTE ---
This RN returned a call to pt's daughter Lorena. Pt's daughter updated on plan of care, including resuming PO Eliquis and adding in IV Lasix 20mg BID. Daughter Lorena reports feeling concerned that her mom has not gotten out of bed and she believes
that this is contributing to her mom's left shoulder and knee pain. This RN told pt's daughter that PT attempted to get her to walk but was unsuccessful. Will pass along to day shift RN to see if PT can attempt to get pt OOB again.
[2024-01-16] MEDS: ANUSOL HC 25 MG RECTAL (22:00)
[2024-01-17 03:34] VITALS: BP 132/61
[2024-01-17 06:00] VITALS: BMI 48.1
[2024-01-17] MEDS: ROBITUSSIN DM 10 ML PO ×2 (06:08→20:39)
[2024-01-17] MEDS: DUONEB 3 ML INH ×4 (07:34→20:23)
[2024-01-17 07:38] LABS: Hematocrit 35.8 % (37.0-47.0); Hemoglobin 11.7 g/dL (12.0-16.0); Mean Corp Hgb Conc. 32.7 g/dL (33.0-37.0); Mean Corpuscular Hgb 29.8 pg (27.0-31.0); Mean Corpuscular Volume 91.3 fL (81.0-99.0); Mean Platelet Volume 9.6 fL (7.4-10.4); Platelet Count 213 10^3/uL (130-400); Red Blood Cell Count 3.92 10^6/uL (4.20-5.40); Red Cell Dist. Width 14.1 % (11.5-14.5); White Blood Cell Count 6.9 10^3/uL (4.8-10.8)
--- NOTE | 2024-01-17 07:52 | W.PN.HOSP.TC ---
Today's Communication/Plan
-
monitor H&H
Lasix Diuresis
cough medication prn, scheduled mucinex
Duoneb RQID
PT/OT
Assessment / Plan
Assessment / Plan
Physical Exam
General: No pallor, cyanosis, or jaundice. Morbid Obesity
HEENT: Throat clear. PERRLA Normocephalic atraumatic
NECK: Supple. No JVD Carotid Bruits
RESPIRATORY: wheezing crackles
CVS: S1, S2 normal. RRR. No murmur, rub or gallop.
ABDOMEN: Soft, non-tender. No distension. BS+/normal.
EXTREMITIES: +1 pitting edema b/l lower ext's calf tenderness
PLANT PRODUCTION MANAGER: AOx3. No focal deficits.
83F Morbid Obesity HFpEF sleep apnea, PAF, HTN, hemorrhoids p/w rectal bleeding 2-3 days duration. Denied abdominal pain, nausea, vomiting, diarrhea, headache, dizziness, syncopal episode, chest pain, short of breath, dysuria, or hematuria.
Wheelchair bound at baseline.
#Gi bleed likely hemorrhoidal
-hgb trended down remains stable consistently >11
-IV PPI
-Transfuse if hemoglobin less than 8
-GI CRS consults appreciated ok to resume regular diet
-Eliquis resumed, tolerating well
#hxt of PE
-home Eliquis resumed as above
#paroxysmal atrial fib s/p cardioversion
-EKG appreciated paced
-home Eliquis resumed as above
# Depression/anxiety
-Duloxetine continued
# History of GERD
-PPI continued
# Acute on Chronic HFpEF
#Coughing wheezing
-CXR appreciated Boderline CHF possible chronic interstitial lung dz
-takes 40 mg Lasix 3x/week at home
-improved w/ Lasix IV 20 mg BID
-BNP 1420 but patient also morbidly obese causes falsely lower values, BNP is also significantly elevated compared to patient's prior value 537
-I/O
-Daily weight
-Spironolactone continued
-ECHO pending
-Cardio eval appreciated home Eliquis increased to 5 mg BID
-cough medications, Duoneb R QID and prn
# Hyperlipidemia
-Statin continued
#Chronic LE
-venous duplex limited study, no DVT noted
#sleep apnea
cont Cpap
# DVT prophylaxis SCDs
PT/OT appreciated SNF rehab, patient however prefers home, wheelchair bound at baseline.
# CODE STATUS
-Full code
I spent a total of 50 minutes with the patient or on the floor. More than 50% of this time involved counseling and coordination of care.
Anticipated Discharge: 24 - 48 hours
Subjective/Interval History
-
Date of Service: January 17, 2024
Reports improvement in cough since start diuresis. Reports recent bowel movement nonbloody.
Objective Data
-
Labs:
Laboratory Results
01/17/24
06:43
WBC 6.9
Hgb 11.7 L
Hct 35.8 L
Plt Count 213
Sodium Pending
Potassium Pending
Chloride Pending
Carbon Dioxide Pending
BUN Pending
Creatinine Pending
Glucose Pending
Calcium Pending
Vital Signs:
Vital Signs
Temp Pulse Resp BP Pulse Ox
97.8 F 69 16 132/61 95
01/17/24 03:34 01/17/24 07:37 01/17/24 07:37 01/17/24 03:34 01/17/24 07:37
I&O
01/16/24 01/17/24 01/18/24
06:59 06:59 06:59
Intake Total 720 / 720 1330 / 1330
Output Total 775 / 775 3900 / 3900
Balance -55 / -55 -2570 / -2569
[2024-01-17 08:07] LABS: Blood Urea Nitrogen 17 mg/dl (7-17); Calcium 8.9 mg/dl (8.4-10.2); Carbon Dioxide 36 mmol/L (22-30); Chloride 94 mmol/L (98-107); Estimated Creatinine Clearance 80 ml/min; Glucose 113 mg/dl (70-99); Magnesium 1.7 mg/dl (1.6-2.3); Potassium 4.2 mmol/L (3.5-5.1); Sodium 134 mmol/L (135-145); eGFR > 60.00
[2024-01-17 08:23] VITALS: BP 132/50
[2024-01-17] MEDS: PROTONIX IV 40 MG IV ×2 (09:25→20:01)
[2024-01-17] MEDS: NSS (PRESERVATIVE FREE) 10 ML IV ×2 (09:26→20:01)
[2024-01-17] MEDS: LASIX 20 MG IV ×2 (09:29→18:15)
[2024-01-17] MEDS: ELIQUIS 2.5 MG PO (09:30)
[2024-01-17] MEDS: CYMBALTA DELAYED RELEASE 60 MG PO (09:30)
[2024-01-17] MEDS: ALDACTONE 25 MG PO ×2 (09:30→20:00)
[2024-01-17] MEDS: FLUSH (NSS) 1 FLUSH IV ×2 (09:32→18:18)
[2024-01-17] MEDS: MUCINEX 600 MG PO ×2 (09:37→20:01)
[2024-01-17] MEDS: DESENEX/MITRAZOL/ZEASORB 1 APPLIC TOPICAL ×2 (09:39→20:04)
[2024-01-17 11:35] VITALS: BP 130/58
--- NOTE | 2024-01-17 14:09 | CON.CAR ---
Consultation
Consultation Request
Date/Time Consultation Requested: 01/17/24
Date/Time Consultation Performed: 01/17/24
Requesting Provider: Dr Mcclendon
Performing Provider: Dr Villeda-- Primary mixed livestock farmer Dr. Wheeler
Reason for Consultation: chf
Medical History
-
Chief Complaint: brbpr
History of Present Illness:
83-year-old female with a past medical history of morbid obesity, HFpEF, sleep apnea, paroxysmal atrial fibrillation status post permanent pacemaker and hemorrhoids presented with 2 to 3 days of rectal bleeding She reports increased shortness of
breath and cough productive of clear sputum. She think she has been gaining weight. She reports she recently saw Dr. Sexton and was 277 pounds and is now 290. She does not weigh herself at home every day.
Past Medical History
Past Medical History: Arrhythmias (A-fib status post AV nannette ablation and permanent pacemaker), CHF and Other (GI bleeding, hemorrhoids, wheelchair-bound, obesity)
Social History
Tobacco: Non-Smoker
Alcohol: Occasional
Family History
Family History: Reviewed & Not Pertinent
Allergies / Home Medications
Allergy/AdvReac Type Severity Reaction Status Date / Time
adenosine Allergy Shortness Verified 03/26/22 10:01
of Breath
aspirin Allergy Shortness Verified 03/26/22 10:01
of Breath
atorvastatin calcium Allergy Unknown Verified 03/26/22 10:01
[From Lipitor]
dabigatran etexilate mesylate Allergy Unknown Verified 03/26/22 10:01
[From Pradaxa]
oxycodone [Oxycodone] Allergy Nausea / Verified 03/26/22 10:01
Vomiting
rosuvastatin calcium Allergy Unknown Verified 03/26/22 10:01
[From Crestor]
thiopental sodium Allergy Shortness Verified 03/26/22 10:01
[From Pentothal] of Breath
�Medication �Instructions �Recorded �Confirmed �Type
furosemide 40 mg tablet 40 mg PO .3X WEEKLY PRN swelling 02/02/14 01/14/24 History
lovastatin 20 mg tablet 20 mg PO MOWEFR 02/02/14 01/14/24 History
spironolactone 25 mg tablet 25 mg PO BID 02/02/14 01/14/24 History
famotidine 20 mg tablet 20 mg PO BID 03/02/21 01/14/24 History
vit C 250 mg-vit E 90 mg-zinc 40 1 ea PO BID 03/02/21 01/14/24 History
mg-copper 1 [id number]
capsule (PreserVision AREDS-2)
apixaban 2.5 mg tablet 2.5 mg PO BID 01/14/24 01/14/24 History
cholecalciferol (vitamin D3) 25 25 mcg PO BID 01/14/24 01/14/24 History
mcg (1,000 unit) tablet
duloxetine 60 mg capsule,delayed 60 mg PO DAILY 01/14/24 01/14/24 History
release
hydrocodone 5 mg-acetaminophen 325 1 tab PO BIDPRN PRN moderate pain 01/14/24 01/14/24 History
mg tablet
nitroglycerin 0.4 mg sublingual 0.4 mg sublingual [id number] PRN 01/14/24 01/14/24 History
tablet (Nitrostat) chest pain
Review of Systems
-
All other systems: Negative unless noted
Physical Exam
Vital Signs
Temp Pulse Resp BP Pulse Ox
98.4 F 72 12 130/58 94
01/17/24 11:35 01/17/24 11:35 01/17/24 11:35 01/17/24 11:35 01/17/24 11:35
Lab Results
01/17/24 06:43
01/17/24 06:43
Cdn-W-Jvpiktwogis Pept 1420 pg/ml 01/16/24 08:32
Physical Exam
General: Well Developed and Other (Obese)
Respiratory: Wheezes (Diffuse wheezing bilaterally)
Cardiac: S1/S2, Regular Rhythm, Murmur (none) and Rub (none)
Neuro: AO x 3
Impression / Plan
-
83-year-old female with a past medical history of morbid obesity, HFpEF, sleep apnea, paroxysmal atrial fibrillation status post permanent pacemaker and hemorrhoids presented with 2 to 3 days of rectal bleeding She reports increased shortness of
breath and cough productive of clear sputum.
Acuter HF with preserved EF:
-continue iv diuresis with intensive monitoring of labs and vital signs
-add MRA, CM consult to erickson out SGLT2i
-update echo
-Additional GDMT as indicated
PAF h/o avn ablation and ppM
-on Eliquis , but dose should be 5mg po bid, will change
GIB:
-Thought to be secondary to hemorrhoidal bleeding.
-Eliquis resumed tonight
-Monitor hemoglobin and for return of symptoms with DOAC
Hyperlipidemia continue statin
Chronic and noncardiac conditions
KEVIN
Morbid obesity
Depression/anxiety
GERD
Data Reviewed
-
EKG: Tracing Personally Visualized and interpreted (EKG tracing today shows V paced rhythm at 70 bpm)
Radiology: Report Reviewed by me (Chest x-ray read as borderline CHF cannot rule out underlying chronic interstitial lung disease)
Labs: Labs Reviewed by me (proBNP 1420 up from 537 in 2020.)
[2024-01-17 15:59] VITALS: BP 113/60
[2024-01-17] MEDS: BenGay-Like 1 APPLIC TOPICAL ×2 (18:06→20:46)
[2024-01-17 19:51] VITALS: BP 135/80
[2024-01-17] MEDS: ELIQUIS 5 MG PO (20:00)
[2024-01-17] MEDS: ANUSOL HC 25 MG RECTAL (20:43)
[2024-01-17 23:15] VITALS: BP 123/61
[2024-01-18] MEDS: ROBITUSSIN DM 10 ML PO (02:47)
[2024-01-18 03:51] VITALS: BP 136/74
[2024-01-18 06:00] VITALS: BMI 48.3
[2024-01-18 07:00] VITALS: BP 138/67
[2024-01-18] MEDS: DUONEB 3 ML INH ×4 (07:07→20:02)
--- NOTE | 2024-01-18 08:37 | W.PN.HOSP.TC ---
Today's Communication/Plan
-
Continue IV Lasix
Appreciate cardiology
Assessment / Plan
Assessment / Plan
Physical Exam
General: Not in acute distress. Morbid Obesity
HEENT: Normocephalic atraumatic
NECK: Supple.
RESPIRATORY: wheezing crackles
CVS: S1, S2 normal. RRR. No murmur, rub or gallop.
ABDOMEN: Soft, non-tender. No distension. BS+/normal.
EXTREMITIES: +1 pitting edema b/l lower ext's calf tenderness
PORT CDL A DRIVER: AOx3. No focal deficits.
Assessment/Plan
83 y/o female Obesity WheelChair bound baseline pAfib on Eliquis here for bright red blood per rectum, likely hemorrhoidal since resolved CRS GI signed off. Hospital stay protracted due to heart failure. ECHO. Cardio on board. PT/OT recommending
SNF rehab however patient has a lot of services at home though she lives alone, refers Home Services to SNF.
83F Morbid Obesity HFpEF sleep apnea, PAF, HTN, hemorrhoids p/w rectal bleeding 2-3 days duration. Denied abdominal pain, nausea, vomiting, diarrhea, headache, dizziness, syncopal episode, chest pain, short of breath, dysuria, or hematuria.
Wheelchair bound at baseline.
#Gi bleed likely hemorrhoidal
-hgb trended down remains stable consistently >11
-Stop PPI -- before discharge check with GI to make sure patient does not need PPI
-Transfuse if hemoglobin less than 8
-GI CRS consults appreciated ok to resume regular diet
-Eliquis resumed, tolerating well
#hxt of PE
-home Eliquis resumed as above but dose increased to 5 mg BID
#paroxysmal atrial fib s/p cardioversion
-EKG appreciated paced
-home Eliquis resumed as above but dose was increased
# Depression/anxiety
-Duloxetine continued
# History of GERD
-Stopped PI for now, as above
# Acute on Chronic HFpEF
# Coronary Artery Disease
#Coughing wheezing
-CXR appreciated Boderline CHF possible chronic interstitial lung dz
-takes 40 mg Lasix 3x/week at home
-improved w/ Lasix IV 20 mg BID
-BNP 1420 but patient also morbidly obese causes falsely lower values, BNP is also significantly elevated compared to patient's prior value 537
-I/O
-Daily weight
-Spironolactone continued
-ECHO pending
-Cardio eval appreciated home Eliquis increased to 5 mg BID
-SGLT2 inhibitor pricing
-Beta colette being held due to wheezing
-cough medications, Duoneb R QID and prn
-If patient's shortness of breath is not improving, consider CT scan to rule out PE given history
# Hyperlipidemia
-Statin continued
#Chronic LE
-venous duplex limited study, no DVT noted
#sleep apnea
cont Cpap
Follow-up with pulmonary outpatient
# DVT prophylaxis Eliquis
PT/OT appreciated SNF rehab, patient however prefers home, wheelchair bound at baseline.
# CODE STATUS
-Full code
Anticipated Discharge: 24 - 48 hours
Subjective/Interval History
-
Date of Service: January 18, 2024
Patient was seen and examined. She denied any new significant symptoms or complaints.
Objective Data
-
Labs:
Laboratory Results
01/18/24 01/18/24
07:19 07:20
WBC Pending
Hgb Pending
Hct Pending
Plt Count Pending
Sodium Pending
Potassium Pending
Chloride Pending
Carbon Dioxide Pending
BUN Pending
Creatinine Pending
Glucose Pending
Calcium Pending
Vital Signs:
Vital Signs
Temp Pulse Resp BP Pulse Ox
99.5 F 70 16 138/67 93
01/18/24 07:00 01/18/24 07:08 01/18/24 07:08 01/18/24 07:00 01/18/24 07:08
I&O
01/17/24 01/18/24 01/19/24
06:59 06:59 06:59
Intake Total 1330 / 1330 1920 / 1920
Output Total 3900 / 3900 1000 / 1000
Balance -2570 / -2570 920 / 920
[2024-01-18 08:54] LABS: Hematocrit 35.4 % (37.0-47.0); Hemoglobin 11.5 g/dL (12.0-16.0); Mean Corp Hgb Conc. 32.5 g/dL (33.0-37.0); Mean Corpuscular Hgb 30.2 pg (27.0-31.0); Mean Corpuscular Volume 92.9 fL (81.0-99.0); Mean Platelet Volume 9.8 fL (7.4-10.4); Platelet Count 225 10^3/uL (130-400); Red Blood Cell Count 3.81 10^6/uL (4.20-5.40); Red Cell Dist. Width 14.1 % (11.5-14.5); White Blood Cell Count 7.3 10^3/uL (4.8-10.8)
[2024-01-18] MEDS: CYMBALTA DELAYED RELEASE 60 MG PO (09:27)
[2024-01-18] MEDS: MUCINEX 600 MG PO ×2 (09:28→20:31)
[2024-01-18] MEDS: LASIX 20 MG IV ×2 (09:28→16:28)
[2024-01-18] MEDS: ELIQUIS 5 MG PO ×2 (09:28→20:31)
[2024-01-18] MEDS: ALDACTONE 25 MG PO ×2 (09:28→20:32)
[2024-01-18] MEDS: BenGay-Like 1 APPLIC TOPICAL ×3 (09:29→20:54)
[2024-01-18] MEDS: DESENEX/MITRAZOL/ZEASORB 1 APPLIC TOPICAL ×2 (09:32→20:31)
[2024-01-18] MEDS: PROTONIX IV 40 MG IV (09:36)
[2024-01-18] MEDS: NSS (PRESERVATIVE FREE) 10 ML IV (09:36)
[2024-01-18 09:40] LABS: Blood Urea Nitrogen 15 mg/dl (7-17); Carbon Dioxide 34 mmol/L (22-30); Chloride 93 mmol/L (98-107); Estimated Creatinine Clearance 94 ml/min; Glucose 100 mg/dl (70-99); Magnesium 1.8 mg/dl (1.6-2.3); Phosphorus 3.6 mg/dl (2.5-4.5); Potassium 4.1 mmol/L (3.5-5.1); Sodium 132 mmol/L (135-145); eGFR > 60.00
--- NOTE | 2024-01-18 10:06 | W.PN.CARDCBS ---
Addendum entered and electronically signed by Genny Serrato MD 01/18/24 11:54:
I saw and examined the patient.
The Christmas Tree Grader's note was reviewed and I agree with the note.
Comment:
Presented with shortness of breath and rectal bleeding. [place] to be hemorrhoidal and primary service is monitoring.
Shortness of breath is likely multifactorial and in part related to heart failure with preserved ejection fraction. Continue diuresis. Was on spironolactone as an outpatient and we will continue.
Look into cost of SGLT2 inhibitor.
Await echocardiogram
She was on lower dose Eliquis as an outpatient 2.5 mg twice daily which now has been increased (01/17/2024). If not improving consider CT scan to rule out PE given history, defer to primary service.
Sleep apnea should be treated.
She is wheezy on exam and we will hold beta-colette. Defer to primary service.
Wean oxygen as tolerates. Physical therapy should assess.
History of coronary disease noted. No complaints of chest pain.
Permanent A-fib with AVJ ablation pacemaker in place. We will assess.
Original Note:
Today's Communication / Plan
-
Continue diuresis
Assess cost of SGLT2 inhibitor
Check echo
Continue Eliquis
Impression / Plan
-
PCP: Dr. Quach
Laser Print Operator: Dr. Wheeler
Impression:
Acute HFpEF
CAD
s/p LAD BMS 2007
h/o RCA PCI
Permanent atrial fibrillation
s/p AVN ablation and PPM
Rectal bleeding due to hemorrhoids
h/o PE
HTB
HLD
KEVIN
GERD
Echo 11/20/2022: EF 55-60%, moderate cLVH, no significant valvular disease
Echo 01/18/2024: Study pending
Plan:
-Presented with 2-3 days of rectal bleeding and SOB. Admitted with acute HFpEF.
-Diuresing with IV lasix 20mg BID.
-Weights down somewhat from admission, down to 290 lbs 01/17.
-Creat stable at 0.6. Follow daily weights, I&Os.
-Prior echo with preserved EF. Await repeat echo results.
-Continue medical therapy with Spironolactone.
-Case management to assess the cost of SGLT2 inhibitors.
-Known h/o PAF s/p AVN ablation and PPM implantation.
-Rectal bleeding felt to be related to hemorrhoids. Hgb stable.
-Eliquis resumed at appropriate dose 5mg BID 01/16.
HPI: 83-year-old female with a past medical history of morbid obesity, HFpEF, sleep apnea, paroxysmal atrial fibrillation status post permanent pacemaker and hemorrhoids presented with 2 to 3 days of rectal bleeding She reports increased shortness
of breath and cough productive of clear sputum.
Progress Note - Laser Print Operator
Subjective
Date of Service: January 18, 2024
Feeling well. Still volume overloaded.
Objective
Labs:
01/18/24 07:19
01/18/24 07:20
Labs
Hgb 11.5 g/dL (12.0-16.0) L 01/18/24 07:19
Hct 35.4 % (37.0-47.0) L 01/18/24 07:19
Plt Count 225 10^3/uL (130-400) 01/18/24 07:19
Sodium 132 mmol/L (135-145) L 01/18/24 07:20
Potassium 4.1 mmol/L (3.5-5.1) 01/18/24 07:20
BUN 15 mg/dl (7-17) 01/18/24 07:20
Creatinine 0.6 mg/dL (0.6-1.0) 01/18/24 07:20
Glucose 100 mg/dl (70-99) H 01/18/24 07:20
Vital Signs and I&O:
Vital Signs
Temp Pulse Resp BP Pulse Ox
99.5 F 79 16 138/67 93
01/18/24 07:00 01/18/24 09:28 01/18/24 07:08 01/18/24 09:28 01/18/24 07:08
Vital Signs
Temp Pulse Resp BP Pulse Ox
99.5 F 79 16 138/67 93
01/18/24 07:00 01/18/24 09:28 01/18/24 07:08 01/18/24 09:28 01/18/24 07:08
Intake & Output
01/16/24 01/17/24 01/18/24 01/19/24
06:59 06:59 06:59 06:59
Intake Total 720 / 720 1330 / 1330 1920 / 1920
Output Total 775 / 775 3900 / 3900 1000 / 1000
Balance -55 / -55 -2570 / -2570 920 / 920
Physical Exam
Physical Exam
GEN: No distress, awake, alert, oriented x3
HEENT: supple, anicteric, mmm
LUNGS: Scattered rhonchi, wheezes
CV: Reg, S1/S2,no murmur
EXT: No clubbing, cyanosis, or edema
NEURO: Gross non-focal
SKIN: Warm, dry, no rash
[2024-01-18 11:00] VITALS: BP 134/51
--- NOTE | 2024-01-18 12:53 | CM ---
Addendum entered by Verna Cervantes 01/18/24 14:17:
Jardiance no covered under prescription plan.
Farxiga 10 mg would be $453.84 per month.
TT to MD.
Addendum entered by Verna Cervantes 01/18/24 14:06:
referral via [facility] and faxed to [phone].
Plan: home with [facility]

Original Note:
Patient seen bedside.
Patient declined skilled rehab, agreeable to [facility] at home. KAYLA.
Patient also has a private caregiver 3-4 hours per day, she said she can increase the hours.
Daughter will transfer home.
Plan: home with [facility] at home
[2024-01-18 13:03] VITALS: BP 123/62; PULSE 72; O2SAT 91
[2024-01-18] MEDS: LIPITOR 10 MG PO (16:29)
[2024-01-18] MEDS: TYLENOL 650 MG PO (16:55)
[2024-01-18 19:27] VITALS: BP 128/64
[2024-01-18] MEDS: ANUSOL HC 25 MG RECTAL (20:54)
[2024-01-18] MEDS: NORCO 5/325 1 TABLET PO (22:51)
[2024-01-18 23:00] VITALS: BP 131/62
[2024-01-19] MEDS: ROBITUSSIN DM 10 ML PO ×4 (02:36→21:43)
[2024-01-19 03:00] VITALS: BP 132/68
[2024-01-19 06:27] VITALS: BMI 48.8
[2024-01-19] MEDS: DUONEB 3 ML INH ×4 (07:42→19:46)
[2024-01-19 07:50] VITALS: BP 136/66
[2024-01-19] MEDS: ALDACTONE 25 MG PO ×2 (08:27→19:57)
[2024-01-19] MEDS: BenGay-Like 1 APPLIC TOPICAL ×3 (08:28→21:29)
[2024-01-19] MEDS: CYMBALTA DELAYED RELEASE 60 MG PO (08:28)
[2024-01-19] MEDS: ELIQUIS 5 MG PO ×2 (08:28→19:57)
[2024-01-19] MEDS: LASIX 20 MG IV ×2 (08:29→16:35)
[2024-01-19] MEDS: MUCINEX 600 MG PO ×2 (08:29→19:57)
--- NOTE | 2024-01-19 08:31 | W.PN.HOSP.TC ---
Addendum entered and electronically signed by Riaz Conley MD 01/19/24 14:04:
Discussed with Dr. Hernandez who recommended continuing IV Lasix for one more day and likely transition to oral Lasix tomorrow.
Addendum entered and electronically signed by Riaz Conley MD 01/19/24 13:36:
Yes, bleeding related to/associated with/due to/exacerbated by Eliquis.
Original Note:
Today's Communication/Plan
-
Continue IV Diuresis
Weights not improving
Cardiac cath? -- cardiology to evaluate for this
Assessment / Plan
Assessment / Plan
Physical Exam
General: Not in acute distress. Morbid Obesity
HEENT: Normocephalic atraumatic
NECK: Supple.
RESPIRATORY: wheezing crackles
CVS: S1, S2 normal. RRR. No murmur, rub or gallop.
ABDOMEN: Soft, non-tender. No distension. BS+/normal.
EXTREMITIES: +1 pitting edema b/l lower ext's calf tenderness
FACE MAN: AOx3. No focal deficits.
Assessment/Plan
83 y/o female Obesity WheelChair bound baseline pAfib on Eliquis here for bright red blood per rectum, likely hemorrhoidal since resolved CRS GI signed off. Hospital stay protracted due to heart failure. ECHO. Cardio on board. PT/OT recommending
SNF rehab however patient has a lot of services at home though she lives alone, refers Home Services to SNF.
83F Morbid Obesity HFpEF sleep apnea, PAF, HTN, hemorrhoids p/w rectal bleeding 2-3 days duration. Denied abdominal pain, nausea, vomiting, diarrhea, headache, dizziness, syncopal episode, chest pain, short of breath, dysuria, or hematuria.
Wheelchair bound at baseline.
#Gastrointestinal bleeding -- likely hemorrhoidal
-hgb trended down remains stable consistently >11
-Stop PPI -- before discharge check with GI to make sure patient does not need PPI
-Transfuse if hemoglobin less than 8
-GI CRS consults appreciated ok to resume regular diet
-Eliquis resumed, tolerating well
#History of PE
-home Eliquis resumed as above but dose increased to 5 mg BID
#paroxysmal atrial fib s/p cardioversion s/p AVN ablation and PPM implantation
-EKG appreciated paced
-home Eliquis resumed as above but dose was increased
# Depression/anxiety
-Duloxetine continued
# History of GERD
-Stopped PI for now, as above
# Acute on Chronic HFpEF
# Coronary Artery Disease
#Coughing wheezing
-CXR appreciated Boderline CHF possible chronic interstitial lung dz
-takes 40 mg Lasix 3x/week at home
-improved w/ Lasix IV 20 mg BID -- but weights still not significantly improving -- continue IV diuresis, I have also asked cardio about a potential heart cath
-BNP 1420 but patient also morbidly obese causes falsely lower values, BNP is also significantly elevated compared to patient's prior value 537
-I/O
-Daily weight
-Spironolactone continued
-ECHO pending
-Cardio eval appreciated home Eliquis increased to 5 mg BID
-Farxiga 10 mg daily on discharge
-Beta colette being held due to wheezing
-cough medications, Duoneb R QID and prn
-CT scan to rule out PE: no PE
# Hyperlipidemia
-Statin continued
#Chronic LE
-venous duplex limited study, no DVT noted
#sleep apnea
continue Cpap
Follow-up with pulmonary outpatient
# DVT prophylaxis Eliquis
PT/OT appreciated SNF rehab, patient however prefers home, wheelchair bound at baseline.
# CODE STATUS
-Full code
Anticipated Discharge: 24 - 48 hours
Subjective/Interval History
-
Date of Service: January 19, 2024
Patient was seen and examined. Patient's nurse reported she had some shortness of breath last night, nurse this morning mentioned that patient had pain from her left groin to her left hip with coughing.
Objective Data
-
Labs:
Laboratory Results
01/19/24
07:41
WBC Pending
Hgb Pending
Hct Pending
Plt Count Pending
Sodium Pending
Potassium Pending
Chloride Pending
Carbon Dioxide Pending
BUN Pending
Creatinine Pending
Glucose Pending
Calcium Pending
Vital Signs:
Vital Signs
Temp Pulse Resp BP Pulse Ox
98.0 F 72 17 136/66 95
01/19/24 07:50 01/19/24 07:50 01/19/24 07:50 01/19/24 07:50 01/19/24 07:50
I&O
01/18/24 01/19/24 01/20/24
06:59 06:59 06:59
Intake Total 1920 / 1920 660 / 660
Output Total 1000 / 1000 650 / 650
Balance 920 / 920
[2024-01-19 08:32] LABS: Hematocrit 36.9 % (37.0-47.0); Hemoglobin 12.2 g/dL (12.0-16.0); Mean Corp Hgb Conc. 33.1 g/dL (33.0-37.0); Mean Corpuscular Volume 90.9 fL (81.0-99.0); Mean Platelet Volume 9.4 fL (7.4-10.4); Platelet Count 247 10^3/uL (130-400); Red Blood Cell Count 4.06 10^6/uL (4.20-5.40); White Blood Cell Count 7.5 10^3/uL (4.8-10.8)
--- NOTE | 2024-01-19 08:42 | W.PN.CARDCBS ---
Addendum entered and electronically signed by Roque Hernandez DO 01/19/24 14:02:
I saw and examined the patient.
The Administrative Office Specialist's note was reviewed and I agree with the note.
Comment:
Plan:
Her weight is similar to previous weight. She does not appear significantly volume overloaded. Difficult exam with morbid obesity
Could likely transition back to Lasix as needed in next 24 hrs with follow-up 1 week with cardiology.
Echo largely unremarkable with preserved LV function and without significant elevation of pulmonary pressures.
cr remains stable
Eliquis increased to appropriate dosing. CT negative for PE. She has history of PE.
Rectal bleeding felt secondary to hemorrhoids. No GI intervention was recommended.
Continue pulmonary toilet. Receiving breathing treatment with some expiratory wheezing.
Original Note:
Today's Communication / Plan
-
Continue IV diuresis
Monitor daily weights and Is and Os
Impression / Plan
-
PCP: Dr. Quach
Operations Section Manager: Dr. Wheeler
Impression:
Acute HFpEF
CAD
s/p LAD BMS 2007
h/o RCA PCI
Permanent atrial fibrillation
s/p AVN ablation and PPM
Rectal bleeding due to hemorrhoids
h/o PE
HTB
HLD
KEVIN
GERD
Echo 11/20/2022: EF 55-60%, moderate cLVH, no significant valvular disease
Echo 01/18/2024: LVEF is 60-65% by visual estimation. Moderate concentric LVH. In limited views RV appears dilated with normal systolic function. Mild aortic regurgitation. Mild tricuspid regurgitation. Estimated pulmonary artery pressure of 33
mmHg, assuming a right atrial pressure of 3 mmHg.
Plan:
-Presented with 2-3 days of rectal bleeding and SOB. Admitted with acute HFpEF.
-Continue medical therapy with Spironolactone.
-Case management to assess the cost of SGLT2 inhibitors.
-Known h/o PAF s/p AVN ablation and PPM implantation.
-Rectal bleeding felt to be related to hemorrhoids. Hgb stable.
-Eliquis resumed at appropriate dose 5mg BID 01/16.
-Continue diuresing with IV lasix 20mg BID.
-Creat stable at 0.6. Follow daily weights, I&Os
-Weight has mildly decreased from admission from 133-->131-->132kg currently
-Minimal weight loss, does not seem to be volume overloaded but difficult to asses due to body habitus
-Upon discharge, can resume home PO Lasix 40mg 3x weekly prn until changes made upon being seen OP in office in 1 week.
HPI: 83-year-old female with a past medical history of morbid obesity, HFpEF, sleep apnea, paroxysmal atrial fibrillation status post permanent pacemaker and hemorrhoids presented with 2 to 3 days of rectal bleeding She reports increased shortness
of breath and cough productive of clear sputum.
Progress Note - Operations Section Manager
Subjective
Date of Service: January 19, 2024
Patient is feeling well. Denies any CP or palpitations.
Objective
Labs:
01/19/24 07:41
Labs
Hgb 12.2 g/dL (12.0-16.0) 01/19/24 07:41
Hct 36.9 % (37.0-47.0) L 01/19/24 07:41
Plt Count 247 10^3/uL (130-400) 01/19/24 07:41
Sodium 132 mmol/L (135-145) L 01/18/24 07:20
Potassium 4.1 mmol/L (3.5-5.1) 01/18/24 07:20
BUN 15 mg/dl (7-17) 01/18/24 07:20
Creatinine 0.6 mg/dL (0.6-1.0) 01/18/24 07:20
Glucose 100 mg/dl (70-99) H 01/18/24 07:20
Vital Signs and I&O:
Vital Signs
Temp Pulse Resp BP Pulse Ox
98.0 F 72 17 136/66 95
01/19/24 07:50 01/19/24 07:50 01/19/24 07:50 01/19/24 07:50 01/19/24 07:50
Vital Signs
Temp Pulse Resp BP Pulse Ox
98.0 F 72 17 136/66 95
01/19/24 07:50 01/19/24 07:50 01/19/24 07:50 01/19/24 07:50 01/19/24 07:50
Intake & Output
01/17/24 01/18/24 01/19/24 01/20/24
06:59 06:59 06:59 06:59
Intake Total 1330 / 1330 1920 / 1920 660 / 660
Output Total 3900 / 3900 1000 / 1000 650 / 650
Balance -2570 / -2570 920 / 920 10 / 10
Physical Exam
Physical Exam
GEN: No distress, awake, alert, oriented x3
HEENT: supple, anicteric, mmm
LUNGS: Scattered rhonchi, wheezes
CV: Reg, S1/S2,no murmur
EXT: No clubbing, cyanosis, or edema
NEURO: Gross non-focal
SKIN: Warm, dry, no rash
[2024-01-19 08:50] LABS: Blood Urea Nitrogen 19 mg/dl (7-17); Calcium 9.2 mg/dl (8.4-10.2); Carbon Dioxide 35 mmol/L (22-30); Chloride 92 mmol/L (98-107); Estimated Creatinine Clearance 95 ml/min; Glucose 112 mg/dl (70-99); Magnesium 1.7 mg/dl (1.6-2.3); Phosphorus 3.7 mg/dl (2.5-4.5); Potassium 3.9 mmol/L (3.5-5.1); Sodium 132 mmol/L (135-145); eGFR > 60.00
[2024-01-19] MEDS: DESENEX/MITRAZOL/ZEASORB 1 APPLIC TOPICAL ×2 (08:52→19:57)
[2024-01-19 10:45] VITALS: BP 144/76
--- NOTE | 2024-01-19 11:08 | PN.CDI ---
CDI
- -
CDI:
Physician Documentation Request
Admit Date: 01/14/24 19:32
Dear Doctor Yael,
Patient admitted for GI bleed likely hemorrhoidal.
Eliquis was initially held.
Please clarify if a relationship exist between these conditions:
Yes, bleeding related to/associated with/due to/exacerbated by Eliquis.
No, bleeding is not related to/associated with/due to exacerbated by Eliquis
Unable to determine
Use of terms such as suspected, likely, concern for, or probable (associated with a specific diagnosis that is being evaluated, monitored, or treated as if it exists) are acceptable and can be coded in the inpatient setting, when documented at the
time of discharge.
Thank you,
Justine Chance RN, BSN
CDI Specialist
tiger text
Please use your independent medical judgment in providing your response.
--- NOTE | 2024-01-19 13:50 | WOUNDNOTE ---
R GROIN SKIN FOLD
--- NOTE | 2024-01-19 13:50 | WOUNDNOTE ---
R LATERAL GROIN/ABDOMEN
--- NOTE | 2024-01-19 13:50 | WOUNDNOTE ---
SACRUM AND R BUTTOCK
--- NOTE | 2024-01-19 13:51 | WOUNDNOTE ---
R DISTAL GROIN SKIN FOLD
--- NOTE | 2024-01-19 13:52 | WOUNDNOTE ---
WON RN note: Patient admitted with GI bleed.
See H&P for complete history. Lives at home with caregivers.
PMH: Obesity, stroke, A Fib, CHF,HTN,SD,PM,GERD,R hip replacement, stent to LAD 2007.
Wound Location and type/assessment: Patient admitted with: MASD in skin folds, R groin worse than R. Fungal powder has been in use since admission with improvement in skin folds. Now remains just R groin with 3 small open areas from MASD, see
photo. With assist from nurse Will turned patient onto sides, R reported buttock abrasion healed, dry skin noted but dressing removed and dry. Heels are intact. Patient complains of pain to L hip, no swelling noted and CT negative for fractured hip,
ice pack in use. Repositioned patient onto R semi side lying position.
Appetite: Good.
Pressure redistribution devices in place: Versa care air, pillow to be applied under calves, nurse to obtain pillow.
Plan: Applied cut pieces of alginate to open wounds in groin skin folds. Continue fungal powder to remaining skin folds.
Will confirm orders with hospitalist and update nurse. Updated care plan and will follow as needed.
Note to case management of equipment requested for discharge: none
--- NOTE | 2024-01-19 14:22 | CM ---
Patient seen at bedside.
Declines skilled rehab
Would like [facility] at home.
States has private caregivers at home 4hr/day, but can increase hours.
CM to continue to follow.
PLAN: Discharge when stable.
[2024-01-19 15:48] VITALS: BP 125/61
[2024-01-19 19:23] VITALS: BP 116/52
[2024-01-19] MEDS: ANUSOL HC 25 MG RECTAL (21:30)
[2024-01-19] MEDS: NORCO 5/325 1 TABLET PO (21:43)
[2024-01-19 22:40] VITALS: BP 118/50
[2024-01-20 03:02] VITALS: BP 112/54
[2024-01-20 06:00] VITALS: BMI 47.3
[2024-01-20 07:25] VITALS: BP 111/66
[2024-01-20] MEDS: DUONEB 3 ML INH ×2 (07:47→11:18)
[2024-01-20] MEDS: ALDACTONE 25 MG PO (08:17)
[2024-01-20] MEDS: BenGay-Like 1 APPLIC TOPICAL (08:18)
[2024-01-20] MEDS: ELIQUIS 5 MG PO (08:19)
[2024-01-20] MEDS: CYMBALTA DELAYED RELEASE 60 MG PO (08:19)
[2024-01-20] MEDS: MUCINEX 600 MG PO (08:19)
[2024-01-20] MEDS: LASIX 20 MG IV (08:19)
[2024-01-20] MEDS: DESENEX/MITRAZOL/ZEASORB 1 APPLIC TOPICAL (08:24)
[2024-01-20] MEDS: ROBITUSSIN DM 10 ML PO (08:26)
--- NOTE | 2024-01-20 09:05 | W.PN.CARDCBS ---
Addendum entered and electronically signed by Perry Kumar MD 01/20/24 10:45:
I saw and evaluated the patient. I reviewed the resident�s note and agree with findings and plan as documented in the resident�s note.
GEN: No distress, awake, Ox3
HEENT: supple, anicteric, mmm
LUNGS: CTA, no wheezes/rales
CV: Reg, S1/S2, 1/6 syst LSB, no gallop
ABD: soft, BS+, NT/ND
EXT: trace edema
NEURO: Gross non-focal
SKIN: chronic stasis changes
Plan:
Has diuresed well. Is overall stable and back on Eliquis. Okay to switch to Lasix 40 mg p.o. daily. Creat 0.6
Okay for discharge from cardiac standpoint with follow-up with ATC.
Cont Aldactone 25mg po bid
Original Note:
Today's Communication / Plan
-
Upon discharge, transition to oral lasix 40mg daily
Impression / Plan
-
PCP: Dr. Quach
Design Eng: Dr. Wheeler
Impression:
Acute HFpEF
CAD
s/p LAD BMS 2007
h/o RCA PCI
Permanent atrial fibrillation
s/p AVN ablation and PPM
Rectal bleeding due to hemorrhoids
h/o PE
HTB
HLD
KEVIN
GERD
Echo 11/20/2022: EF 55-60%, moderate cLVH, no significant valvular disease
Echo 01/18/2024: LVEF is 60-65% by visual estimation. Moderate concentric LVH. In limited views RV appears dilated with normal systolic function. Mild aortic regurgitation. Mild tricuspid regurgitation. Estimated pulmonary artery pressure of 33
mmHg, assuming a right atrial pressure of 3 mmHg.
Plan:
-Presented with 2-3 days of rectal bleeding and SOB. Admitted with acute HFpEF.
-Continue medical therapy with Spironolactone.
-Known h/o PAF s/p AVN ablation and PPM implantation.
-Rectal bleeding felt to be related to hemorrhoids. Hgb stable.
-Eliquis resumed at appropriate dose 5mg BID 01/16.
-Continue diuresing with IV lasix 20mg BID.
-Creat stable at 0.6. Follow daily weights, I&Os
-Weight has decreased from admission from 133kg-->128kg currently
-Does not seem to be volume overloaded but difficult to asses due to body habitus
-Upon discharge, transition to oral Lasix 40mg daily. F/u OP with her carpenter rough in 1 week.
HPI: 83-year-old female with a past medical history of morbid obesity, HFpEF, sleep apnea, paroxysmal atrial fibrillation status post permanent pacemaker and hemorrhoids presented with 2 to 3 days of rectal bleeding She reports increased shortness
of breath and cough productive of clear sputum.
Progress Note - Design Eng
Subjective
Date of Service: January 20, 2024
Patient states that she feels her breathing has gotten better. She denies any CP, palpitations or headaches.
Objective
Labs:
01/19/24 07:41
01/19/24 07:41
Labs
Hgb 12.2 g/dL (12.0-16.0) 01/19/24 07:41
Hct 36.9 % (37.0-47.0) L 01/19/24 07:41
Plt Count 247 10^3/uL (130-400) 01/19/24 07:41
Sodium 132 mmol/L (135-145) L 01/19/24 07:41
Potassium 3.9 mmol/L (3.5-5.1) 01/19/24 07:41
BUN 19 mg/dl (7-17) H 01/19/24 07:41
Creatinine 0.6 mg/dL (0.6-1.0) 01/19/24 07:41
Glucose 112 mg/dl (70-99) H 01/19/24 07:41
Vital Signs and I&O:
Vital Signs
Temp Pulse Resp BP Pulse Ox
98.1 F 72 16 111/66 90
01/20/24 07:25 01/20/24 08:17 01/20/24 07:50 01/20/24 08:17 01/20/24 07:50
Vital Signs
Temp Pulse Resp BP Pulse Ox
98.1 F 72 16 111/66 90
01/20/24 07:25 01/20/24 08:17 01/20/24 07:50 01/20/24 08:17 01/20/24 07:50
Intake & Output
01/18/24 01/19/24 01/20/24 01/21/24
06:59 06:59 06:59 06:59
Intake Total 1920 / 1920 660 / 660 480 / 480
Output Total 1000 / 1000 650 / 650 400 / 400
Balance 920 / 920 10 / 10 80 / 80
Physical Exam
Physical Exam
GEN: No distress, awake, alert, oriented x3
HEENT: supple, anicteric, mmm
LUNGS: Scattered rhonchi
CV: Reg, S1/S2,no murmur
EXT: No clubbing, cyanosis, or edema
NEURO: Gross non-focal
SKIN: Warm, dry, no rash
--- NOTE | 2024-01-20 10:49 | W.PN.HOSP.TC ---
Addendum entered and electronically signed by Riaz Conley MD 01/20/24 14:01:
Permanent atrial fibrillation
Original Note:
Today's Communication/Plan
-
Discharge today
Assessment / Plan
Assessment / Plan
Physical Exam
General: Not in acute distress. Morbid Obesity
HEENT: Normocephalic atraumatic
NECK: Supple.
RESPIRATORY: Clear to Auscultation Bilaterally
CVS: S1, S2 normal. RRR.
ABDOMEN: Soft, non-tender. No distension. BS+/normal.
EXTREMITIES: +1 pitting edema b/l lower ext's calf tenderness
PAINTER MAINTENANCE: AOx3. No focal deficits.
Assessment/Plan
83 y/o female Obesity WheelChair bound baseline pAfib on Eliquis hospitalized for bright red blood per rectum, likely hemorrhoidal since resolved, and CRS and GI signed off. Hospital stay protracted due to heart failure. ECHO. Cardio on board.
PT/OT recommending SNF rehab however patient has a lot of services at home though she lives alone, patient prefers Home Services to SNF.
83F Morbid Obesity HFpEF sleep apnea, PAF, HTN, hemorrhoids p/w rectal bleeding 2-3 days duration. Denied abdominal pain, nausea, vomiting, diarrhea, headache, dizziness, syncopal episode, chest pain, short of breath, dysuria, or hematuria.
Wheelchair bound at baseline.
#Gastrointestinal bleeding -- likely hemorrhoidal
-hgb trended down remains stable consistently >11
-Stop PPI -- okay for no PPI as per discussion on January 20, 2024 with GI
-Transfuse if hemoglobin less than 8
-GI CRS consults appreciated ok to resume regular diet
-Eliquis resumed, tolerating well
-Continue conservative measures: Sitz bath's, Anusol cream twice daily, hydrocortisone suppositories nightly, high-fiber
-Follow-up with Dr. Yousif (engineering faculty) in [place] as outpatient and Dr. Joya (colorectal surgeon) as outpatient
#History of PE
-home Eliquis resumed as above but dose increased to 5 mg BID
#paroxysmal atrial fib s/p cardioversion s/p AVN ablation and PPM implantation
-EKG appreciated paced
-home Eliquis resumed as above but dose was increased
# Depression/anxiety
-Duloxetine continued
# History of GERD
-Stopped PI for now, as above
# Acute on Chronic HFpEF
# Coronary Artery Disease
#Coughing wheezing
-CXR appreciated Boderline CHF possible chronic interstitial lung dz
-takes 40 mg Lasix 3x/week at home
-Completed IV diuresis
-Continue Lasix PO 40 mg daily on discharge
-BNP 1420 but patient also morbidly obese causes falsely lower values, BNP is also significantly elevated compared to patient's prior value 537
-I/O
-Daily weight
-Continue Spironolactone 25 mg PO BID
-ECHO pending
-Cardio eval appreciated home Eliquis increased to 5 mg BID
-Farxiga 10 mg daily on discharge
-Beta colette being held due to wheezing
-cough medications, Duoneb R QID and prn
-CT scan to rule out PE: no PE
-Recheck CBC, BMP and Magnesium outpatient
# Hyperlipidemia
-Statin continued
#Chronic LE
-venous duplex limited study, no DVT noted
#sleep apnea
continue Cpap
Follow-up with pulmonary outpatient
# DVT prophylaxis Eliquis
PT/OT appreciated SNF rehab, patient however prefers home, wheelchair bound at baseline.
# CODE STATUS
-Full code
More than 30 minutes spent in discharge including
Final examination of the patient
Summarizing hospital stay
Instructions for continuing care to all relevant caregivers
Preparation of discharge records, prescriptions, and referral forms
Total time spent (in minutes): 41
Anticipated Discharge: Today
Subjective/Interval History
-
Date of Service: January 20, 2024
Patient was seen and examined. She denied any chest pain, shortness of breath, dizziness or any other symptoms or complaints. She stated that she would like to go home today.
Objective Data
-
Vital Signs:
Vital Signs
Temp Pulse Resp BP Pulse Ox
98.1 F 72 16 111/66 90
01/20/24 07:25 01/20/24 08:17 01/20/24 07:50 01/20/24 08:17 01/20/24 07:50
I&O
01/19/24 01/20/24 01/21/24
06:59 06:59 06:59
Intake Total 660 / 660 480 / 480
Output Total 650 / 650 400 / 400
Balance 10 / 10 80 / 80
[2024-01-20] MEDS: NORCO 5/325 1 TABLET PO (10:54)
--- NOTE | 2024-01-20 11:20 | CM ---
Addendum entered by Tanika Handy 01/20/24 15:13:
[facility] accepted referral for [facility]N
FAX #[phone]
Original Note:
Patient seen at bedside.
Continues to decline SNF as recommended by therapy, but will accept VN.
Referral to [facility] placed in care port.
Daughter to transport home.
PLAN: Discharge when medically stable with VN.
--- NOTE | 2024-01-20 11:26 | PN.CDI ---
CDI
- -
CDI:
Physician Documentation Request
Admit Date: 01/14/24 19:32
Dear Doctor Yael,
Patient has history of atrial fibrillation.
Hospitalist refer to the afib as paroxysmal.
Cardiology as permanent.
In an attempt to clarify potentially conflicting documentation, please clarify the type of atrial fibrillation:
Paroxysmal atrial fibrillation - terminates spontaneously or with intervention within 7 days of onset
Persistent atrial fibrillation - episodes of continuous AF that last more than 7 days and do not self-terminate
Permanent atrial fibrillation - when a decision has been made to accept the presence of AF and there is no further attempt to restore or maintain sinus rhythm
Other - please specify
Use of terms such as suspected, likely, concern for, or probable (associated with a specific diagnosis that is being evaluated, monitored, or treated as if it exists) are acceptable and can be coded in the inpatient setting, when documented at the
time of discharge.
Thank you,
Justine Chance RN, BSN
CDI Specialist
tiger text
Please use your independent medical judgment in providing your response.
[2024-01-20 11:48] VITALS: BP 125/80
--- NOTE | 2024-01-20 14:00 | W.DS.TRANS ---
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
-
Discharge Instructions:
Discharge Diagnosis/Procedures #Gastrointestinal bleeding -- likely
hemorrhoidal
#History of Pulmonary Embolism
#Paroxysmal atrial fib s/p cardioversion s/p AVN
ablation and PPM implantation
#Abdominal Aorta Atherosclerosis
#Depression/anxiety
#History of GERD
#Acute on Chronic HFpEF
#Coronary Artery Disease
#Coughing wheezing
#Hyperlipidemia
#Chronic Lower Extremity Swelling
#Sleep apnea
CT Abdomen Pelvis Results as Per Radiologist's
Report
'IMPRESSION:
Limited evaluation of intestinal tract without
oral contrast, no intestinal obstruction or free
air. Sigmoid diverticulosis.
Markedly limited evaluation of the soft tissues
and osseous structures of the true pelvis as a
result of beam hardening artifact from right hip
arthroplasty. No gross findings to suggest
recent left hip fracture.
No findings to suggest inguinal hernia
bilaterally.
IVC filter identified in position.
At least mild cardiomegaly, heart incompletely
included on this study.'
Diet Restrict fluids to 64 oz,Low Sodium,2 Gram
Sodium,Low Cholesterol,Low Fat
Activity As tolerated
Driving Restrictions No driving
Blood Work Recheck CBC, BMP and Magnesium outpatient with
your primary care provider's office in 5 to 7
days.
Other Services VN
Specialty Instructions Weigh Daily
Instructions:
Stand-Alone Forms:
Changes to Home Medications: Yes
Discharge Medications:
DC Medications w/original date entered in [facility]
lovastatin 20 mg tablet 20 mg PO MOWEFR 02/02/14
spironolactone 25 mg tablet 25 mg PO BID 02/02/14
famotidine 20 mg tablet 20 mg PO BID 03/02/21
vit C 250 mg-vit E 90 mg-zinc 40 mg-copper 1 [id number] capsule (PreserVision AREDS-2) 1 ea PO BID 03/02/21
cholecalciferol (vitamin D3) 25 mcg (1,000 unit) tablet 25 mcg PO BID 01/14/24
duloxetine 60 mg capsule,delayed release 60 mg PO DAILY 01/14/24
hydrocodone 5 mg-acetaminophen 325 mg tablet 1 tab PO BIDPRN PRN moderate pain 01/14/24
nitroglycerin 0.4 mg sublingual tablet (Nitrostat) 0.4 mg sublingual [id number] PRN chest pain 01/14/24
apixaban 5 mg tablet (Eliquis) 5 mg PO BID #60 tabs 01/20/24
furosemide 40 mg tablet 40 mg PO DAILY #30 tabs 01/20/24
guaifenesin 600 mg tablet, extended release 12 hr 600 mg PO Q12 #14 tabs 01/20/24
hydrocortisone acetate 25 mg rectal suppository 25 mg AK HS #12 ea 01/20/24
levalbuterol tartrate 45 mcg/actuation aerosol inhaler (Xopenex HFA) 2 inh inhalation Q6H PRN shortness of breath or wheezing #15 grams 01/20/24
Home Medication Changes
Eliquis has been increased from 2.5 mg BID to 5 mg BID.
Furosemide dose has been increased to 40 mg PO daily.
Guaifenesin is a new medication.
Hydrocortisone Acetate is a new medication.
Levalbuterol inhaler as need for shortness of breath or wheezing is a new medication.
Pending Results: No
Total time spent discharging patient (in min): 41
== END 2024-01-20 15:31 | disposition home health service (06) | DRG 393 ==
LOC: 4 WEST ACU 19:32
PROVIDERS: Registered Nurse; ADMITTING PHYSICIAN Internal Medicine; ATTENDING PHYSICIAN Hospitalist; CONSULT PHYSICIAN Internal Medicine Cardiovascular Disease; CONSULT PHYSICIAN Internal Medicine Gastroenterology; CONSULT PHYSICIAN Surgery; EMERGENCY PHYSICIAN Student in an Organized Health Care Education/Training Program
DX: K64.8 Other hemorrhoids (principal); I50.33 Acute on chronic diastolic (congestive) heart failure; D68.32 Hemorrhagic disorder due to extrinsic circulating anticoagulants; I48.21 Permanent atrial fibrillation; Z68.42 Body mass index [BMI] 45.0-49.9, adult; J84.9 Interstitial pulmonary disease, unspecified; I11.0 Hypertensive heart disease with heart failure; T45.515A Adverse effect of anticoagulants, initial encounter; E66.01 Morbid (severe) obesity due to excess calories; F32.A Depression, unspecified; F41.9 Anxiety disorder, unspecified; K21.9 Gastro-esophageal reflux disease without esophagitis; E78.00 Pure hypercholesterolemia, unspecified; G47.33 Obstructive sleep apnea (adult) (pediatric); I25.10 Atherosclerotic heart disease of native coronary artery without angina pectoris; K64.4 Residual hemorrhoidal skin tags; I25.2 Old myocardial infarction; Z95.0 Presence of cardiac pacemaker; Z99.3 Dependence on wheelchair; Z86.711 Personal history of pulmonary embolism; Z86.73 Personal history of transient ischemic attack (TIA), and cerebral infarction without residual deficits; Z85.42 Personal history of malignant neoplasm of other parts of uterus; Z88.5 Allergy status to narcotic agent; Z88.6 Allergy status to analgesic agent; Z79.899 Other long term (current) drug therapy; Z96.641 Presence of right artificial hip joint
CPT/HCPCS: 71046; 71275; 74178; 80048; 80053; 83735; 83880; 84100; 85014; 85018; 85025; 85027; 85384; 86850; 86900; 86901; 93005; 93306; 93970; 94640; 97163; 97167; 97530; 99285; Q9950; Q9967

== ENCOUNTER 2025-05-10 06:33 | Day surgery (SDC) | payer MEDICARE, OTHER, SELFPAY ==
[2025-05-10 06:58] VITALS: BP 133/52
[2025-05-10 07:07] VITALS: BMI 47.6
--- NOTE | 2025-05-10 07:13 | ITS.CL.PACE ---
Packaging Materials Inspector - Pacemaker Implant
Pacemaker Implant
Procedure Report:
PACEMAKER GENERATOR CHANGE
Date of Procedure: May 10, 2025
Primary Care Physician: Dr. Lucero Quach
Primary Au Pair: Dr. Chris Wheeler
Procedures:
1. Removal of a dual chamber PPM generator at [facility]
2. Implant of a new dual chamber PPM generator
Indication of Procedure:
1. PM generator at [facility]
2. Non-reversible symptomatic bradycardia due to: sinus node dysfunction, second degree AV block, third degree AV block.
Indication/History: The patient is an 85-year-old woman with a past medical history significant for permanent atrial fibrillation and status post AV node ablation with dual-chamber pacemaker placement. She is pacemaker dependent in the ventricle.
Pacemaker battery is at [facility]. Lead data is stable. Eliquis was held for the procedure.
Antibiotic: Ancef 2 g IV
Sedation/anesthesia: Per anesthesia staff.
Description of Procedure: 'Time out' was called and confirmed. The patient was prepped and draped in sterile fashion. Lidocaine with epinephrine was used for local anesthesia. An incision was made along the previous incision and the device and
leads were carefully dissected from the pocket. Hemostasis was obtained with electrocautery. The leads were from the device header and tested using an external analyzer. The pocket was liberally irrigated with antibiotic solution. Once
testing (see below) showed adequate and stable function, the leads were connected to the generator header and the leads and generator were placed within the pocket. The pocket was closed in the typical fashion.
EXPLANTED PPM GENERATOR: [employer] DR RF [id number] serial #[id number]
IMPLANTED PPM GENERATOR: [employer] PM [id number] #[id number]
Existing RA lead: [employer] tendril ST [id number]/52 serial number: [id number]
Existing RV lead: [employer] Isoflex S [id number] serial number: [id number]
DEVICE TESTING:
Sensing: RA [afib] mV, RV [PACED] mV
Capture: RA [afib], RV 1.0V@0.4ms
Ohms: RA 380, RV 550
FINAL PROGRAMMING
Augustus Pacing: VVI 70-120 ppm
Complications: None
CONCLUSIONS:
1. Successful explant of a dual chamber permanent pacemaker
2. Successful implant of a dual chamber permanent pacemaker
RECOMMENDATIONS:
1. Routine post-op care.
2. In-Office wound check on thursday.
3. Office interrogation in 4 weeks
[2025-05-10 08:31] VITALS: BP 140/62
[2025-05-10 08:49] VITALS: BP 154/63
[2025-05-10 09:02] VITALS: BP 100/66
== END 2025-05-10 09:25 | disposition home or self-care (01) ==
LOC: CATH 06:33
PROVIDERS: ATTENDING PHYSICIAN Internal Medicine Cardiovascular Disease; FAMILY PHYSICIAN Internal Medicine
DX: Z45.010 Encounter for checking and testing of cardiac pacemaker pulse generator [battery] (principal); I48.21 Permanent atrial fibrillation; I44.2 Atrioventricular block, complete; E78.00 Pure hypercholesterolemia, unspecified; I10 Essential (primary) hypertension; G47.33 Obstructive sleep apnea (adult) (pediatric); E11.9 Type 2 diabetes mellitus without complications; Z79.01 Long term (current) use of anticoagulants; Z79.899 Other long term (current) drug therapy; Z79.02 Long term (current) use of antithrombotics/antiplatelets
CPT/HCPCS: 33228; C1785